=== PATIENT | female | born 1950 | race Caucasian/White ===

== ENCOUNTER → 2016-04-20 | Outpatient (CLI) | payer BC ==
[~2016-04-20] MED LIST: ACET500T57 PO; ADVIN25/60 INH; AMLH/550 PO; ASCO10003 PO; ASPI81TA28 PO; BSP15 PO; CHOL20009 PO; FEXO5TAB2 PO; FLNIN/ NAE; GLC5 PO; LPT10 PO; LSN20 PO; MAGN400T6 PO; METF-384 PO; MULT-506 PO; OMEP20CA9 PO; POTA20TA16 PO; RANI150T3 PO; SENNTAB23 PO; SITA100T3 PO; TPRSR/50 PO
[2016-04-20 09:47] LABS: BASO % 0.6 %; BASO ABS # 0.04 K/uL (0-0.2); COMPLETE YES; EOS % 1.9 %; HEMATOCRIT 35.9 % (37-47); IG% 0.3 %; LYMPH % 40.9 %; LYMPH ABS # 2.65 K/uL (1.2-3.4); MEAN CORPUSCULAR HEMOGLOBIN 28.3 pg (25-34); MEAN CORPUSCULAR HGB CONC 31.5 g/dl (32-36); MEAN PLATELET VOLUME 10.3 fL (7.4-10.4); MONO % 5.9 %; NEUT % 50.4 %; PLATELET COUNT 262 K/uL (130-400); RED BLOOD COUNT 3.99 M/uL (4.2-5.4); WHITE BLOOD COUNT 6.48 K/uL (4.8-10.8)
[2016-04-20 10:22] LABS: ALT/SGPT 29 U/L (12-78); AST/SGOT 15 U/L (15-37); BLOOD UREA NITROGEN 20 mg/dl (7-18); BUN/CREATININE RATIO 18.4 (10-20); CALCIUM 8.7 mg/dl (8.5-10.1); CARBON DIOXIDE 25 mmol/L (21-32); CHLORIDE 102 mmol/L (98-107); GLUCOSE 235 mg/dl (70-99); POTASSIUM 4.5 mmol/L (3.5-5.1); SODIUM 139 mmol/L (136-145)
[2016-04-20 10:25] LABS: ALB/GLOB RATIO 1.1 (0.9-2); ALKALINE PHOSPHATASE 63 U/L (45-117); FERRITIN 54.6 ng/ml (8.0-388.0); TOTAL IRON BINDING CAPACITY 293 mcg/dl (250-450)
== END | disposition home or self-care (01) ==
LOC: C.LAB 08:20
PROVIDERS: ATTEND Family Medicine
DX: E11.9 Type 2 diabetes mellitus without complications (principal); I10 Essential (primary) hypertension; D64.9 Anemia, unspecified; E55.9 Vitamin D deficiency, unspecified

== ENCOUNTER → 2016-05-24 | Outpatient (CLI) | payer BC | END | disposition home or self-care (01) | LOC: C.PAPS 05-23 11:56 | PROVIDERS: ATTEND Internal Medicine Geriatric Medicine | DX: Z01.419 Encounter for gynecological examination (general) (routine) without abnormal findings (principal) ==

== ENCOUNTER → 2016-05-30 | Outpatient (CLI) | payer BC ==
--- NOTE | 2016-05-30 09:38 | DIAGNOSTIC IMAGING REPORT ---
EXAMINATION: PELVIC ULTRASOUND CLINICAL HISTORY: N93.9 Vaginal bleeding, [id number] BLEEDING COMPARISON STUDY: None FINDINGS: The uterus measured 9.9 cm. Several uterine fibroids. These measure from 2.0 to 4.4 cm maximum dimension. Several demonstrate central calcification.. The endometrial stripe measured not identified due to fibroid involvement. The right ovary measured not well seen presumably secondary atrophic change. The left ovary measured not well seen presumably secondary atrophic change. There is no ultrasonographic evidence of ovarian torsion. It should be noted that ovarian torsion can be present with normal Doppler ultrasonographic findings. There was no evidence of pathologic free pelvic fluid. IMPRESSION: 1. Fibroid-type uterus 2. Fibroids measure from 2 to 4.4 cm maximum dimension. 3. Nonvisualization of the ovaries most likely secondary to atrophic change Electronically signed by: Arturo Whitney M.D. 05/30/2016 9:36 AM Dictated Date/Time: 05/30/2016 9:35 AM
--- NOTE | 2016-05-31 08:20 | DIAGNOSTIC IMAGING REPORT ---
EXAMINATION: PELVIC ULTRASOUND CLINICAL HISTORY: N93.9 Vaginal bleeding, [id number] BLEEDING COMPARISON STUDY: None FINDINGS: The uterus measured 9.9 cm. Several uterine fibroids. These measure from 2.0 to 4.4 cm maximum dimension. Several demonstrate central calcification.. The endometrial stripe measured not identified due to fibroid involvement. The right ovary measured not well seen presumably secondary atrophic change. The left ovary measured not well seen presumably secondary atrophic change. There is no ultrasonographic evidence of ovarian torsion. It should be noted that ovarian torsion can be present with normal Doppler ultrasonographic findings. There was no evidence of pathologic free pelvic fluid. IMPRESSION: 1. Fibroid-type uterus 2. Fibroids measure from 2 to 4.4 cm maximum dimension. 3. Nonvisualization of the ovaries most likely secondary to atrophic change Electronically signed by: Arturo Whitney M.D. 05/30/2016 9:36 AM Dictated Date/Time: 05/30/2016 9:35 AM
== END | disposition home or self-care (01) ==
LOC: C.ULTR 08:32
PROVIDERS: ATTEND Internal Medicine Geriatric Medicine
DX: N93.9 Abnormal uterine and vaginal bleeding, unspecified (principal)

== ENCOUNTER → 2016-07-15 | Outpatient (CLI) | payer BC ==
[2016-07-15 09:49] LABS: BASO % 0.6 %; BASO ABS # 0.04 K/uL (0-0.2); COMPLETE YES; EOS % 2.5 %; HEMATOCRIT 35.2 % (37-47); IG% 0.3 %; LYMPH % 44.1 %; MEAN CELL VOLUME 91.2 fL (80-100); MEAN CORPUSCULAR HGB CONC 31.8 g/dl (32-36); MEAN PLATELET VOLUME 10.2 fL (7.4-10.4); MONO % 6.9 %; NEUT % 45.6 %; PLATELET COUNT 249 K/uL (130-400); RED BLOOD COUNT 3.86 M/uL (4.2-5.4); WHITE BLOOD COUNT 7.25 K/uL (4.8-10.8)
[2016-07-15 10:16] LABS: ESTIMATED AVERAGE GLUCOSE 160 mg/dl; HA1C FLAG Normal (Normal)
[2016-07-15 10:37] LABS: BLOOD UREA NITROGEN 25 mg/dl (7-18); BUN/CREATININE RATIO 27.3 (10-20); CARBON DIOXIDE 26 mmol/L (21-32); CHLORIDE 106 mmol/L (98-107); CREATININE 0.92 mg/dl (0.60-1.20); GLUCOSE 158 mg/dl (70-99); MAGNESIUM 1.9 mg/dl (1.8-2.4); POTASSIUM 5.1 mmol/L (3.5-5.1); SODIUM 141 mmol/L (136-145)
[2016-07-15 10:47] LABS: FERRITIN 52.6 ng/ml (8.0-388.0); TOTAL IRON BINDING CAPACITY 309 mcg/dl (250-450)
== END | disposition home or self-care (01) ==
LOC: C.LAB 07:54
PROVIDERS: ATTEND Family Medicine
DX: D64.9 Anemia, unspecified (principal); E83.42 Hypomagnesemia; E11.9 Type 2 diabetes mellitus without complications; I10 Essential (primary) hypertension; Z11.59 Encounter for screening for other viral diseases

== ENCOUNTER → 2017-02-04 | Outpatient (CLI) | payer BC ==
[2017-02-04 08:34] LABS: ESTIMATED AVERAGE GLUCOSE 177 mg/dl; HA1C FLAG Normal (Normal)
[2017-02-04 08:46] LABS: CHOLESTEROL/HDL RATIO 1.8; MAGNESIUM 1.9 mg/dl (1.8-2.4)
== END | disposition home or self-care (01) ==
LOC: C.LAB 07:38
PROVIDERS: ATTEND Physician Assistant Medical
DX: E55.9 Vitamin D deficiency, unspecified (principal); E11.9 Type 2 diabetes mellitus without complications; R25.2 Cramp and spasm

== ENCOUNTER → 2017-03-08 | Outpatient (CLI) | payer BC ==
[~2017-03-08] MED LIST changes: -ACET500T57 PO; +ACET500T58 PO
--- NOTE | 2017-03-09 14:26 | MAMMOGRAPHY REPORT ---
BILATERAL DIGITAL SCREENING MAMMOGRAM TOMOSYNTHESIS WITH CAD: 03/08/2017 CLINICAL HISTORY: Routine screening. Patient has no complaints. TECHNIQUE: Breast tomosynthesis in addition to standard 2D mammography was performed. Current study was also evaluated with a Computer Aided Detection (CAD) system. COMPARISON: Comparison is made to exams dated: 01/11/2016 mammogram, 01/07/2015 mammogram, 12/06/2013 mammogram, 11/14/2012 mammogram, 11/14/2011 mammogram, and 11/11/2010 mammogram - [facility]. BREAST COMPOSITION: There are scattered areas of fibroglandular density in both breasts. FINDINGS: No suspicious masses, calcifications, or areas of architectural distortion are noted in ei ther breast. There has been no significant interval change compared to prior exams. Scattered bilater al benign-appearing calcifications are not significantly changed. Asymmetry in the right superior br east is stable compared to multiple prior exams including the 2011 exam, and considered benign given long-term stability. IMPRESSION: ACR BI-RADS CATEGORY 2: BENIGN There is no mammographic evidence of malignancy. A 1 year screening mammogram is recommended. The pa tient will receive written notification of the results. Approximately 10% of breast cancers are not detected with mammography. A negative mammographic report should not delay biopsy if a clinically suggestive mass is present. Jenn Valerio M.D. /:03/09/2017 07:48:14 Box Toe Maker: Marizol Daniels, [facility] letter sent: Normal 1/2 BI-RADS Code: ACR BI-RADS Category 2: Benign
== END | disposition home or self-care (01) ==
LOC: C.MAMM 17:11
PROVIDERS: ATTEND Physician Assistant Medical
DX: Z12.31 Encounter for screening mammogram for malignant neoplasm of breast (principal)

== ENCOUNTER → 2017-08-10 | Outpatient (CLI) | payer BC ==
[~2017-08-10] MED LIST changes: +POTA-639 PO; -POTA20TA16 PO
--- NOTE | 2017-08-10 09:23 | DIAGNOSTIC IMAGING REPORT ---
CHEST 2 VIEWS ROUTINE CLINICAL HISTORY: ASTHMA COMPARISON STUDY: No previous studies for comparison. FINDINGS: The heart is the upper limits of normal in size. There is mild nonspecific mediastinal prominence. There is no focal pulmonary consolidation. There is no failure. There are no pleural effusions.[ IMPRESSION: 1. Mild mediastinal fullness. While this may be secondary to fat deposition given the patient's body habitus, mild adenopathy cannot be excluded 2. No evidence of failure. No evidence of focal pulmonary consolidation Electronically signed by: Nathanael De Leon M.D. 08/10/2017 9:22 AM Dictated Date/Time: 08/10/2017 9:19 AM
== END | disposition home or self-care (01) ==
LOC: C.RAD 08:45
PROVIDERS: ATTEND Physician Assistant Medical
DX: J45.909 Unspecified asthma, uncomplicated (principal)

== ENCOUNTER → 2017-08-12 | Outpatient (CLI) | payer BC ==
[2017-08-12 09:57] LABS: BASO % 0.6 %; BASO ABS # 0.04 K/uL (0-0.2); EOS % 3.1 %; HEMOGLOBIN 11.2 g/dL (12.0-16.0); IG# 0.02 K/uL (0.00-0.02); LYMPH % 43.5 %; LYMPH ABS # 2.79 K/uL (1.2-3.4); MEAN CELL VOLUME 89.7 fL (80-100); MEAN CORPUSCULAR HEMOGLOBIN 28.7 pg (25-34); MEAN PLATELET VOLUME 9.9 fL (7.4-10.4); MONO % 7.8 %; NEUT % 44.7 %; NEUT ABS # 2.87 K/uL (1.4-6.5); PLATELET COUNT 249 K/uL (130-400); RED CELL DISTRIBUTION WIDTH CV 13.7 % (11.5-14.5); RED CELL DISTRIBUTION WIDTH SD 44.7 fL (36.4-46.3); WHITE BLOOD COUNT 6.42 K/uL (4.8-10.8)
[2017-08-12 10:16] LABS: HEMOGLOBIN A1C 8.3 % (4.5-5.6)
[2017-08-12 10:27] LABS: ALBUMIN 3.5 gm/dl (3.4-5.0); ALT/SGPT 37 U/L (12-78); AST/SGOT 29 U/L (15-37); BLOOD UREA NITROGEN 22 mg/dl (7-18); CALCIUM 8.8 mg/dl (8.5-10.1); CARBON DIOXIDE 28 mmol/L (21-32); CREATININE 1.01 mg/dl (0.60-1.20); GLUCOSE 158 mg/dl (70-99); POTASSIUM 5.1 mmol/L (3.5-5.1); SODIUM 138 mmol/L (136-145)
[2017-08-12 10:43] LABS: ALKALINE PHOSPHATASE 73 U/L (45-117); TOTAL PROTEIN 6.9 gm/dl (6.4-8.2)
== END | disposition home or self-care (01) ==
LOC: C.LAB 08:37
PROVIDERS: ATTEND Physician Assistant Medical
DX: E11.9 Type 2 diabetes mellitus without complications (principal); D64.9 Anemia, unspecified

== ENCOUNTER → 2017-10-23 | Outpatient (CLI) | payer BC ==
[~2017-10-23] MED LIST changes: +LIRA18IN SC; +LISI-726 PO; -LSN20 PO; +OMEG10002 PO; +OXYC-90 PO; -POTA-639 PO; +POTA10CA28 PO; -SITA100T3 PO
[2017-10-23 10:18] LABS: BLOOD UREA NITROGEN 32 mg/dl (7-18); CARBON DIOXIDE 24 mmol/L (21-32); CREATININE 1.16 mg/dl (0.60-1.20); GLUCOSE 279 mg/dl (70-99); POTASSIUM 4.7 mmol/L (3.5-5.1); SODIUM 137 mmol/L (136-145)
[2017-10-23 10:32] LABS: HEMOGLOBIN A1C 8.5 % (4.5-5.6)
== END | disposition home or self-care (01) ==
LOC: C.LAB 08:54
PROVIDERS: ATTEND Physician Assistant
DX: E11.65 Type 2 diabetes mellitus with hyperglycemia (principal); I10 Essential (primary) hypertension; R60.9 Edema, unspecified

== ENCOUNTER → 2017-11-02 | Outpatient (CLI) | payer BC ==
[2017-11-02 19:34] LABS: BLOOD UREA NITROGEN 20 mg/dl (7-18); CALCIUM 8.6 mg/dl (8.5-10.1); CARBON DIOXIDE 24 mmol/L (21-32); CREATININE 0.99 mg/dl (0.60-1.20); GLUCOSE 130 mg/dl (70-99); POTASSIUM 5.1 mmol/L (3.5-5.1); SODIUM 136 mmol/L (136-145)
== END | disposition home or self-care (01) ==
LOC: C.LAB 17:41
PROVIDERS: ATTEND Nurse Practitioner Adult Health
DX: R60.9 Edema, unspecified (principal)

== ENCOUNTER 2022-08-23 10:22 | Inpatient (IN) ==
--- NOTE | 2022-08-02 10:00 | PAT Medication Instructions ---
Medication Instructions Date of Service August 02, 2022 Home Medications Medication Instructions Recorded compr.stocking,thigh,short,lrg #2 ea 09/04/19 OneTouch Delica Plus Lancet 33 #400 ea 09/23/19 gauge (lancets) amiloride 5 mg-hydrochlorothiazide See Rx Instructions .Route 08/05/21 50 mg tablet .COMPLEX #90 tabs fluticasone 250 mcg-salmeterol 50 1 inh inhalation BID #180 ea 10/18/21 mcg/dose blistr powdr for inhalation (Advair Diskus) metformin 500 mg 24 hr 1,000 mg PO BID #360 tabs 02/24/22 tablet,extended release OneTouch Verio test strips (blood #400 ea 04/21/22 sugar diagnostic) baclofen 10 mg tablet 10 mg PO BID #180 tabs 05/24/22 gabapentin 800 mg tablet 800 mg PO TID #270 tabs 07/14/22 metoprolol succinate 50 mg See Rx Instructions .Route 08/02/22 tablet,extended release 24 hr .COMPLEX #90 tabs ascorbic acid (vitamin C) 1,000 mg tablet (Vitamin C) 1 tab PO TID aspirin 81 mg tablet,delayed release 81 mg PO QAM cholecalciferol (vitamin D3) 25 mcg (1,000 unit) capsule (Vitamin D3) 4,000 unit PO HS ferrous sulfate 325 mg (65 mg iron) tablet (Iron (ferrous sulfate)) 325 mg PO QAM fluticasone propionate 50 mcg/actuation nasal spray,suspension (Flonase Allergy Relief) 1 spray intranasal QAM multivitamin 1 tab PO QAM omega 1-qby-pap-fish oil 1,000 mg (120 mg-180 mg) capsule (Fish Oil) 3 cap PO TID acetaminophen 500 mg tablet 1,000 mg PO TID PRN pain amiloride 5 mg-hydrochlorothiazide 50 mg tablet See Rx Instructions .Route .COMPLEX fluticasone 250 mcg-salmeterol 50 mcg/dose blistr powdr for inhalation (Advair Diskus) 1 inh inhalation BID metformin 500 mg 24 hr tablet,extended release 1,000 mg PO BID insulin degludec 100 unit/mL (3 mL) subcutaneous pen (Tresiba FlexTouch U-100 insulin) See Rx Instructions subcut HS baclofen 10 mg tablet 10 mg PO BID fexofenadine 180 mg tablet (Luda Allergy) 180 mg PO BID gabapentin 800 mg tablet 800 mg PO TID atorvastatin 10 mg tablet 10 mg PO HS buspirone 15 mg tablet 15 mg PO BID cyanocobalamin (vitamin B-12) 1,000 mcg tablet (Vitamin B-12) 1,000 mcg PO QPM duloxetine 60 mg capsule,delayed release 60 mg PO HS lisinopril 40 mg tablet 40 mg PO HS magnesium 250 mg tablet 250 mg PO HS magnesium 250 mg tablet 250 mg PO QPM omeprazole 20 mg capsule,delayed release 20 mg PO QPM semaglutide 0.25 mg or 0.5 mg (2 mg/3 mL) subcutaneous pen injector (Ozempic) 0.5 mg subcut WK metoprolol succinate 50 mg tablet,extended release 24 hr See Rx Instructions .Route .COMPLEX Continue as directed semaglutide 0.25 mg or 0.5 mg (2 mg/3 mL) subcutaneous pen injector (Ozempic) 0.5 mg subcut WK ASK your prescriber and surgeon aspirin 81 mg tablet,delayed release 81 mg PO QAM STOP taking 2 weeks before surgery (or as soon as possible if surgery is within 2 weeks) omega 2-ytd-ucv-fish oil 1,000 mg (120 mg-180 mg) capsule (Fish Oil) 3 cap PO TID DO NOT take the morning of surgery ascorbic acid (vitamin C) 1,000 mg tablet (Vitamin C) 1 tab PO TID ferrous sulfate 325 mg (65 mg iron) tablet (Iron (ferrous sulfate)) 325 mg PO QAM multivitamin 1 tab PO QAM amiloride 5 mg-hydrochlorothiazide 50 mg tablet See Rx Instructions .Route .COMPLEX metformin 500 mg 24 hr tablet,extended release 1,000 mg PO BID baclofen 10 mg tablet 10 mg PO BID Take morning of surgery With a small sip of water, OTHERWISE NOTHING TO EAT OR DRINK AFTER MIDNIGHT: fluticasone propionate 50 mcg/actuation nasal spray,suspension (Flonase Allergy Relief) 1 spray intranasal QAM acetaminophen 500 mg tablet 1,000 mg PO TID PRN pain (if needed) fluticasone 250 mcg-salmeterol 50 mcg/dose blistr powdr for inhalation (Advair Diskus) 1 inh inhalation BID gabapentin 800 mg tablet 800 mg PO TID buspirone 15 mg tablet 15 mg PO BID Take evening before surgery ascorbic acid (vitamin C) 1,000 mg tablet (Vitamin C) 1 tab PO TID cholecalciferol (vitamin D3) 25 mcg (1,000 unit) capsule (Vitamin D3) 4,000 unit PO HS acetaminophen 500 mg tablet 1,000 mg PO TID PRN pain (if needed) fluticasone 250 mcg-salmeterol 50 mcg/dose blistr powdr for inhalation (Advair Diskus) 1 inh inhalation BID metformin 500 mg 24 hr tablet,extended release 1,000 mg PO BID insulin degludec 100 unit/mL (3 mL) subcutaneous pen (Tresiba FlexTouch U-100 insulin) See Rx Instructions subcut HS baclofen 10 mg tablet 10 mg PO BID fexofenadine 180 mg tablet (Luda Allergy) 180 mg PO BID gabapentin 800 mg tablet 800 mg PO TID atorvastatin 10 mg tablet 10 mg PO HS buspirone 15 mg tablet 15 mg PO BID cyanocobalamin (vitamin B-12) 1,000 mcg tablet (Vitamin B-12) 1,000 mcg PO QPM duloxetine 60 mg capsule,delayed release 60 mg PO HS lisinopril 40 mg tablet 40 mg PO HS magnesium 250 mg tablet 250 mg PO HS magnesium 250 mg tablet 250 mg PO QPM omeprazole 20 mg capsule,delayed release 20 mg PO QPM metoprolol succinate 50 mg tablet,extended release 24 hr See Rx Instructions .Route .COMPLEX Other Notes If you have any questions please call us at [phone] or [phone] or [phone] or [phone]
--- NOTE | 2022-08-09 11:34 | Anesthesiology Consultation ---
Date of Service August 09, 2022 Assessment & Plan (1) Encounter for pre-operative examination: - check BSG am DOS. - PCP 08/10/22 [place]: "...scheduled for back surgery August 23, 2022. Preop testing shows UTI. Ordered Macrobid 100 mg twice a day...patient cleared for surgery..." Chart Review Chart Review: Acceptable Risk for Surgery and Patient seen in Pre Admission Testing Teaching & Discussion Pre-Anesthesia Teaching/Discussion Notes: Instructed NPO after midnight before surgery, except medications with 15 cc of water. Medication instructions provided according to the PAT guidelines. History Surgery Operation Date: 08/23/22 10:00 Proposed Procedures p L3-S1 Decompression and Fusion, Spinal Cord Monitoring - Wan Baker DO Height/Weight Height: 5 ft 5 in Weight: 132.449 kg Allergies Allergy/AdvReac Type Severity Reaction Status Date / Time empagliflozin Allergy Intermediate CAUSED Verified 08/10/22 11:17 [From Jardiance] KIDNEY DISEASE SHORT TERM nickel Allergy Intermediate localized Verified 08/10/22 11:17 rash Penicillins Allergy Intermediate RASH Verified 08/10/22 11:17 Medications Home Medications Medication Instructions Recorded Confirmed Last Taken ascorbic acid (vitamin C) 1,000 mg 1 tab PO TID 06/12/18 08/10/22 06/27/18 21:00 tablet (Vitamin C) aspirin 81 mg tablet,delayed 81 mg PO QAM 06/12/18 08/10/22 06/27/18 09:00 release cholecalciferol (vitamin D3) 25 4,000 unit PO HS 06/12/18 08/10/22 10/06/19 18:00 mcg (1,000 unit) capsule (Vitamin D3) ferrous sulfate 325 mg (65 mg 325 mg PO QAM 06/12/18 08/10/22 10/06/19 08:00 iron) tablet (Iron (ferrous sulfate)) fluticasone propionate 50 1 spray intranasal QAM 06/12/18 08/10/22 10/07/19 06:00 mcg/actuation nasal spray,suspension (Flonase Allergy Relief) multivitamin 1 tab PO QAM 06/12/18 08/10/22 10/06/19 06:00 compr.stocking,thigh,short,lrg #2 ea 09/04/19 08/10/22 Unknown OneTouch Delica Plus Lancet 33 #400 ea 09/23/19 08/10/22 Unknown gauge (lancets) acetaminophen 500 mg tablet 1,000 mg PO TID PRN pain 10/19/20 08/10/22 Unknown fluticasone 250 mcg-salmeterol 50 1 inh inhalation BID #180 ea 10/18/21 08/10/22 Unknown mcg/dose blistr powdr for inhalation (Advair Diskus) metformin 500 mg 24 hr 1,000 mg PO BID #360 tabs 02/24/22 08/10/22 Unknown tablet,extended release OneTouch Verio test strips (blood #400 ea 04/21/22 08/10/22 Unknown sugar diagnostic) insulin degludec 100 unit/mL (3 See Rx Instructions subcut HS 05/09/22 08/10/22 Unknown mL) subcutaneous pen (Tresiba FlexTouch U-100 insulin) baclofen 10 mg tablet 10 mg PO BID #180 tabs 05/24/22 08/10/22 Unknown fexofenadine 180 mg tablet 180 mg PO BID 06/22/22 08/10/22 Unknown (Luda Allergy) gabapentin 800 mg tablet 800 mg PO TID #270 tabs 07/14/22 08/10/22 Unknown atorvastatin 10 mg tablet 10 mg PO HS 08/01/22 08/10/22 Unknown buspirone 15 mg tablet 15 mg PO BID 08/01/22 08/10/22 Unknown cyanocobalamin (vitamin B-12) 1,000 mcg PO QPM 08/01/22 08/10/22 Unknown 1,000 mcg tablet (Vitamin B-12) duloxetine 60 mg capsule,delayed 60 mg PO HS 08/01/22 08/10/22 Unknown release lisinopril 40 mg tablet 40 mg PO HS 08/01/22 08/10/22 Unknown magnesium 250 mg tablet 250 mg PO HS 08/01/22 08/10/22 Unknown omeprazole 20 mg capsule,delayed 20 mg PO QPM 08/01/22 08/10/22 Unknown release semaglutide 0.25 mg or 0.5 mg (2 0.5 mg subcut WK 08/01/22 08/10/22 Unknown mg/3 mL) subcutaneous pen injector (Ozempic) amiloride 5 mg-hydrochlorothiazide See Rx Instructions .Route 08/02/22 08/10/22 Unknown 50 mg tablet .COMPLEX #90 tabs metoprolol succinate 50 mg See Rx Instructions .Route 08/02/22 08/10/22 Unknown tablet,extended release 24 hr .COMPLEX #90 tabs nitrofurantoin 100 mg PO BID #14 caps 08/10/22 08/10/22 Unknown monohydrate/macrocrystals 100 mg capsule (Macrobid) Past Medical History Medical History Acid reflux disease Adrenal nodule Asthma Walton's palsy Cardiac murmur Chronic back pain CKD (chronic kidney disease) Depression with anxiety Diabetes mellitus, type 2 History of colon polyps Hyperlipidemia Hypertension Kidney stones Peripheral neuropathy Patient denies h/o stroke, seizures, heart attack, heart failure, blood clots or blood transfusions. Exercise / Class Metabolic Activity III < 4 Walking/Shop/Light housework (denies chest discomfort or shortness of breath with usual activities) Past Family History Family History Grandmother (Maternal) Diabetes Grandmother (Paternal) Diabetes Father Diabetes Brother Pacemaker Other No family history of adverse response to anesthesia Denies family history of Ovarian cancer Breast cancer Colorectal cancer Past Surgical History Surgical History History of breast biopsy History of carpal tunnel surgery of right wrist History of cholecystectomy History of colonoscopy History of cryosurgery History of hysteroscopy History of lithotripsy History of surgical removal of pilonidal cyst History of tooth extraction S/P epidural steroid injection Past Anesthesia History No Hx of Anesthesia Complications and No Family Hx of Anesthesia Complications History of PONV No Hx of PONV and No Hx of Motion Sickness Social History Smoking Status: Former smoker tobacco type: cigarettes Do You Dip or Chew Tobacco: No Smoking End Date: 1992 Hx Alcohol Use: No Hx Substance Use: No substance use type: does not use Review of Systems Snoring, denies witnessed apneas. Patient denies chest pain, shortness of breath, dyspnea on exertion, reflux, fever, chills, cough, wheezing, or palpitations. Physical Exam Vital Signs Vitals BP 138/84 P 63 TEMP 97.8 SP02 94% on RA RESP 17 Physical Full cervical extension range of motion without pain TMD < 3 finger breadths Mallampati Score 3 Dentition: full upper denture, denies chipped or loose teeth, caps/crowns, implants or bridges Lungs: normal respiratory effort. Good air movement, clear throughout to auscultation, no adventitious breath sounds Cardiac: regular rate and rhythm, no murmurs noted Carotid arteries: negative bruit bilat Lab Results Anesthesia Preop Results Results Anesthesia Widget: WBC 5.58 K/ul (4.8-10.8) 08/09/22 Hgb 10.4 g/dl (12.0-16.0) L 08/09/22 Hct 33.2 % (37.0-47.0) L 08/09/22 Plt 239 K/uL (130-400) 08/09/22 Na 137 mmol/L (136-145) 08/09/22 K 5.0 mmol/L (3.5-5.1) 08/09/22 Cl 103 mmol/L (98-107) 08/09/22 CO2 28 mmol/L (21-32) 08/09/22 BUN 14 mg/dl (6-23) 08/09/22 Creat 0.88 mg/dl (0.6-1.2) 08/09/22 Glucose Level 85 mg/dl (70-99(Fasting)) 08/09/22 PT 9.8 Seconds (9.0-12.0) 08/09/22 PTT 28.5 Seconds (21.0-31.0) 08/09/22 INR 0.9 (0.9-1.1) 08/09/22 TSH 1.223 uIu/ml (0.300-4.500) 06/20/22 HA1c 6.6 % (4.5-5.6) H 08/09/22 Urine Color Yellow 08/09/22 Urine Appearance Clear (Clear) 08/09/22 Urine pH 5.5 (4.5-7.5) 08/09/22 Urine Specific [place] 1.020 (1.000-1.030) 08/09/22 Urine Protein Negative (Negative) 08/09/22 Urine Glucose (UA) Negative (Negative) 08/09/22 Urine Ketones Negative (Negative) 08/09/22 Urine Blood Negative (Negative) 08/09/22 Urine Nitrite Positive (Negative) A 08/09/22 Urine Bilirubin Negative (Negative) 08/09/22 Urine Urobilinogen Negative (Negative) 08/09/22 Urine Leukocyte Esterase Trace (Negative) H 08/09/22 Urine WBC (Auto) 1-5 /hpf (0-5) 08/09/22 Urine RBC (Auto) 0-4 /hpf (0-4) 08/09/22 Urine Hyaline Casts (Auto) 1-5 /lpf (0-5) 08/09/22 Urine Epithelial Cells (Auto) 10-20 /lpf (0-5) H 08/09/22 Urine Bacteria (Auto) 4+ (Negative) H 08/09/22 Blood Type O Positive 08/09/22 Antibody Screen NEGATIVE 08/09/22 Testing Laboratory Results Surgeon's office made aware of abnormal UA. Electrocardiogram Date: 08/09/22 NSR, rate 65 bpm Chest X-Ray Date: 08/09/22 No active disease in the chest Echocardiogram Date: 01/17/17 EF 55-60% Mild cLVH Normal LV wall motion No significant valvular pathology Grade I diastolic dysfunction COVID-19 Risk Screen Screening Information COVID-19 Screen Date: 08/09/22 Exposure 21 Days Family/Household +COVID Last 21 Days: No Exposure 10 Days Any COVID Exposure Last 10 Days: No Symptoms Last 10 Days Experienced COVID Sx Last 10 Days: No + COVID 0-90 Days COVID + in Last 0-90 Days: No
[~2022-08-23 10:22] MED LIST changes: -ACET500T58 PO; +ACETAMINOPHEN 500 MG TAB PO SCH; -ADVIN25/60 INH; -AMLH/550 PO; -ASCO10003 PO; -ASPI81TA28 PO; -BSP15 PO; -CHOL20009 PO; +CLINDAMYCIN/D5W 900 MG/50 ML BAG IV SCH; +CeleBREX 200 MG CAP PO SCH; -FEXO5TAB2 PO; -FLNIN/ NAE; +GABAPENTIN 300 MG CAP PO SCH; -GLC5 PO; -LIRA18IN SC; -LISI-726 PO; -LPT10 PO; +LR 15ML/HR IV SCH; -MAGN400T6 PO; -METF-384 PO; -MULT-506 PO; -OMEG10002 PO; -OMEP20CA9 PO; -OXYC-90 PO; -POTA10CA28 PO; -RANI150T3 PO; -SENNTAB23 PO; -TPRSR/50 PO
[2022-08-23] MEDS ORDERED: MIDAZOLAM HCL 1 MG/ML 2ML VIAL ONE (10:52)
[2022-08-23] MEDS ORDERED: fentaNYL citrate PF 100 MCG/2 ML VIAL ONE ×2 (10:52→12:13)
--- NOTE | 2022-08-23 11:14 | History & Physical Bridge Note ---
Date of Service August 23, 2022 History & Physical Bridge Note I have examined the patient, reviewed the History & Physical and in the interval since the performance of the History & Physical I have noted the following changes of clinical significance: no changes noted
--- NOTE | 2022-08-23 11:15 | History & Physical Report ---
Date of Service August 23, 2022 Assessment & Plan (1) Lumbar spinal stenosis: Plan: L3-S1 decompression and fusion History of Present Illness Chief Complaint: Back and bilateral leg pain Primary Care Provider: Andrew Adan DO This is a 71-year-old female presents with chronic persistent back and leg pain after failing course of nonoperative care she is here for surgical intervention. Allergies Allergy/AdvReac Type Severity Reaction Status Date / Time empagliflozin Allergy Intermediate CAUSED Verified 08/10/22 11:17 [From Jardiance] KIDNEY DISEASE SHORT TERM nickel Allergy Intermediate localized Verified 08/10/22 11:17 rash Penicillins Allergy Intermediate RASH Verified 08/10/22 11:17 Home Medications Medication Instructions Recorded Confirmed Type ascorbic acid (vitamin C) 1,000 mg 1 tab PO TID 06/12/18 08/23/22 History tablet (Vitamin C) aspirin 81 mg tablet,delayed 81 mg PO QAM 06/12/18 08/23/22 History release cholecalciferol (vitamin D3) 25 4,000 unit PO HS 06/12/18 08/23/22 History mcg (1,000 unit) capsule (Vitamin D3) ferrous sulfate 325 mg (65 mg 325 mg PO QAM 06/12/18 08/23/22 History iron) tablet (Iron (ferrous sulfate)) fluticasone propionate 50 1 spray intranasal QAM 06/12/18 08/23/22 History mcg/actuation nasal spray,suspension (Flonase Allergy Relief) multivitamin 1 tab PO QAM 06/12/18 08/23/22 History compr.stocking,thigh,short,lrg #2 ea 09/04/19 08/10/22 Rx OneTouch Delica Plus Lancet 33 #400 ea 09/23/19 08/10/22 Rx gauge (lancets) acetaminophen 500 mg tablet 1,000 mg PO TID PRN pain 10/19/20 08/23/22 History fluticasone 250 mcg-salmeterol 50 1 inh inhalation BID #180 ea 10/18/21 08/23/22 Rx mcg/dose blistr powdr for inhalation (Advair Diskus) metformin 500 mg 24 hr 1,000 mg PO BID #360 tabs 02/24/22 08/23/22 Rx tablet,extended release OneTouch Verio test strips (blood #400 ea 04/21/22 08/10/22 Rx sugar diagnostic) insulin degludec 100 unit/mL (3 See Rx Instructions subcut HS 05/09/22 08/23/22 History mL) subcutaneous pen (Tresiba FlexTouch U-100 insulin) baclofen 10 mg tablet 10 mg PO BID #180 tabs 05/24/22 08/23/22 Rx fexofenadine 180 mg tablet 180 mg PO BID 06/22/22 08/23/22 History (Luda Allergy) gabapentin 800 mg tablet 800 mg PO TID #270 tabs 07/14/22 08/23/22 Rx atorvastatin 10 mg tablet 10 mg PO HS 08/01/22 08/23/22 History buspirone 15 mg tablet 15 mg PO BID 08/01/22 08/23/22 History cyanocobalamin (vitamin B-12) 1,000 mcg PO QPM 08/01/22 08/23/22 History 1,000 mcg tablet (Vitamin B-12) duloxetine 60 mg capsule,delayed 60 mg PO HS 08/01/22 08/23/22 History release lisinopril 40 mg tablet 40 mg PO HS 08/01/22 08/23/22 History magnesium 250 mg tablet 250 mg PO HS 08/01/22 08/23/22 History omeprazole 20 mg capsule,delayed 20 mg PO QPM 08/01/22 08/23/22 History release semaglutide 0.25 mg or 0.5 mg (2 0.5 mg subcut WK 08/01/22 08/23/22 History mg/3 mL) subcutaneous pen injector (Ozempic) amiloride 5 mg-hydrochlorothiazide See Rx Instructions .Route 08/02/22 08/10/22 Rx 50 mg tablet .COMPLEX #90 tabs metoprolol succinate 50 mg See Rx Instructions .Route 08/02/22 08/10/22 Rx tablet,extended release 24 hr .COMPLEX #90 tabs Past Med/Surg History Medical History Acid reflux disease Adrenal nodule Asthma Walton's palsy Cardiac murmur Chronic back pain CKD (chronic kidney disease) Depression with anxiety Diabetes mellitus, type 2 History of colon polyps Hyperlipidemia Hypertension Kidney stones Peripheral neuropathy Surgical History History of breast biopsy History of carpal tunnel surgery of right wrist History of cholecystectomy History of colonoscopy History of cryosurgery History of hysteroscopy History of lithotripsy History of surgical removal of pilonidal cyst History of tooth extraction S/P epidural steroid injection Family History Grandmother (Maternal) Diabetes Grandmother (Paternal) Diabetes Father Diabetes Brother Pacemaker Other No family history of adverse response to anesthesia Denies family history of Ovarian cancer Breast cancer Colorectal cancer Social History Smoking Status: Former smoker Tobacco Type: Cigarettes Age Started Using Tobacco: 19; Age Quit Using Tobacco: 37; packs per day: 1.5; Smoking End Date: 1992; Second Hand Exposure: No; Do You Dip or Chew Tobacco: No; Tobacco Cessation Education Requested by Patient: No Hx Alcohol Use: No Hx Substance Use: No Preferred Language: [place] Communication Ability: Effective Visual Impairment: Limited Hearing Ability: Normal 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 Beliefs That Will Affect Care: None marital status: Current Living Situation: Spouse current occupational status: retired Other Information That Helps Us Care for You: No Feels Safe at Home: Yes Safety Concerns: Feels Safe At This Time Childhood Exposure to Second-Hand Smoke: No Diet: low carbohydrate caffeine: Yes Dental Care, Regularly: Yes Physical Activity Frequency: Does not Exercise Seatbelt Use: always Sunscreen Use: Yes Do you think of yourself as: straight/heterosexual Assistive Devices: Denture - Upper, Glasses and Walker Physical Exam Physical Exam: Patient is alert and oriented Heart regular rhythm Lungs clear Results & Data Results & Data Vital Signs (Past 12 Hours) Vital Signs Temp Pulse Resp BP Pulse Ox O2 Del Method 08/23/22 10:59 36.9 C 76 16 185/64 H 98 Room Air
[2022-08-23] MEDS ORDERED: PROMETHAZINE HCL 6.25 MG in SODIUM CHLORIDE 0.9% 50 ML IV PRN (11:25)
[2022-08-23] MEDS ORDERED: HYDROmorphone INJ 1 MG/ML SYRINGE IV PRN ×2 (11:25→16:11)
[2022-08-23] MEDS ORDERED: ONDANSETRON INJ 2 MG/ML 2 ML VIAL IV PRN ×2 (11:25→16:11)
[2022-08-23] MEDS ORDERED: ATROPINE SULFATE 0.1 MG/ML 10ML SYR IV PRN (11:25)
[2022-08-23] MEDS ORDERED: ePHEDrine sulfate 50 MG/ML AMP IV PRN (11:25)
[2022-08-23] MEDS ORDERED: ceFAZolin 330 MG/ML 1 GM VIAL ONE (11:29)
[2022-08-23] MEDS ORDERED: BUPIVACAINE/EPINEPHRINE 0.25% 1:200,000 30 ML VIAL ONE (11:29)
[2022-08-23] MEDS ORDERED: LIDOCAINE 2% 2 ML VIAL/AMP(20MG/ML) INFIL ONE (11:34)
[2022-08-23] MEDS ORDERED: ONDANSETRON INJ 2 MG/ML 2 ML VIAL ONE ×2 (11:34→12:20)
[2022-08-23] MEDS ORDERED: ROCURONIUM BROMIDE 10 MG/ML 5 ML VIAL IV ONE ×6 (11:34→13:17)
[2022-08-23] MEDS ORDERED: PROPOFOL IV EMULSION 10 MG/ML 20 ML VIAL IV ONE (11:34)
[2022-08-23] MEDS ORDERED: ePHEDrine sulfate 50 MG/ML SYR ONE (12:16)
[2022-08-23] MEDS ORDERED: SUGAMMADEX SODIUM 200 MG/2 ML VIAL IV ONE (12:20)
[2022-08-23] MEDS ORDERED: FLOSEAL HEMOSTATIC MATRIX 10ML TOP ONE (12:31)
[2022-08-23] MEDS ORDERED: GLYCOPYRROLATE 0.2 MG/ML VIAL ONE (12:49)
[2022-08-23] MEDS ORDERED: PHENYLEPHRINE HCL 10 MG/ML VIAL ONE (13:12)
--- NOTE | 2022-08-23 14:33 | Operative Report ---
Post Operative Report Pre & Post Diagnosis Operation Date: 08/23/22 11:50 Pre-Op Diagnosis: Lumbar spinal stenosis with neurogenic claudication Lumbar spondylolisthesis Morbid obesity Post-Op Diagnosis: Same I identified the patient and participated in the time-out.: Yes Procedure Operation Date: 08/23/22 11:50 Actual Procedures #1 lumbar decompression with bilateral medial facetectomies and foraminotomies L2-L3, L3-L4, L4-L5 and L5-S1. #2 posterior spinal fusion L3-S1. #3 placement posterior segmental instrumentation L3-S1. #4 interbody fusion L3-L4 L4-L5 L5- S1. #5 placement of Spira 9 x 26 mm cage at L3-L4, 12 x 26 mm cage at L4-L5 and 13 x 26 mm cage at L5-S1. #6 placement locally harvested morselized autograft in the posterior gutters. #7 placement of I factor combined with V toss in the interbody space and posterior lateral gutters. Surgeon Wan Baker, DO Combine Inspector Christina Diaz Estimated Blood Loss 650 Findings See Below The patient is 5 foot 5 weighing over 132 kg with a BMI in excess of 48. This combined with an EBL of greater than 650 cc. Significant technical difficulty adding these 50% increased operative time. Specimens None Indications This is a 71-year-old female who presents above-mentioned diagnosis after failed extensive course of nonoperative care she is here for surgical intervention. Description of Procedure Patient was met with identified informed consent obtained. Patient was then taken to the operative suite underwent patient placed in a prone position on the [place] table top Luis A frame. All bony promises well-padded eyes inspected to ensure no external pressure placed upon the. This point the lumbar spine was prepped and draped in a sterile fashion. Sharp dissection with the assistance of Bovie cautery to form down to and exposing the lamina and transverse processes of L3-L4-L5 and sacral ala bilaterally. From caudal to cephalad fashion complete laminectomy of L5 L4 L3 and partial laminectomy of L2 was performed including bilateral medial facetectomies and foraminotomies addressing severe spinal stenosis. Pedicle screws then placed in all 3 L4-L5 and S1 levels bilaterally with assistance of fluoroscopy and the properly sized michelle placed. By way of a transforaminal approach on the right complete discectomy of L5-S1 was performed endplates curetted to subcortical bleeding bone and a 13 x 26 mm Spira cage with I factor tapped in position. Then proceeded to L for L5 again by way of transforaminal approach and right complete discectomy performed endplates guided to subcortically bone and a 12 x 26 mm Spira cage with I factor tapped in position. Lastly proceeded to L3-L4 and again by way of a transforaminal approach on the right complete discectomy performed endplates curetted to subcortical bleeding bone and a 9 x 26 mm Spira cage with I factor tapped the position. The rods were then locked into final position bilaterally. The transverse processes of L3-L4-L5 and the sacral ala burred to subcortically bone. I factor amount of the test and locally harvested morselized graft was placed in the posterior gutters. 15 round ROSAMARIA drain inserted. The incision was then closed with 1 Vicryl the fascia 2-0 Vicryl subcutaneously and 4 Monocryl for final skin closure. Steri-Strips and a sterile dressing placed. Patient waken taken to PACU in stable condition. Please note spinal cord monitoring was utilized at the procedure no changes noted. Lastly Christina Diaz was present at the entire surgeon while the patient positioning complex portions of the surgery and final skin closure. I attest to the content of the Intraoperative Record and any orders documented therein. Any exceptions are noted below.
--- NOTE | 2022-08-23 14:49 | Fluoroscopy Report ---
INTRAOPERATIVE RADIOGRAPHS CLINICAL HISTORY: L3-S1 spinal fusion. Fluoro time: 38 seconds Ka,r: 59.00 mGy FINDINGS: 2 spot fluoroscopic views of the lumbar spine are presented. There has been discectomy at L 3-L4, L4-L5, and L5-S1 with laminectomy and posterior fusion at L3-S1. Interpedicular screws are pres ent at all levels. The orthopedic hardware appears intact. IMPRESSION: Intraoperative images from lumbar spinal fusion surgery as above. Electronically signed by: Sukh Morales M.D. 08/23/2022 2:48 PM
[2022-08-23] MEDS: fentaNYL citrate PF 100 MCG/2 ML VIAL IV PRN ×2 (15:17→15:22)
--- NOTE | 2022-08-23 15:35 | Anesthesiology Progress Note ---
Date of Service August 23, 2022 Anesthesia Post Procedure Vital Signs Vital Signs: Temp Pulse Pulse Resp BP Pulse Ox O2 Del Method 08/23/22 15:25 73 12 157/60 H 100 Oxymask 08/23/22 15:15 74 12 140/58 L 100 Oxymask 08/23/22 15:05 69 17 111/74 99 Oxymask 08/23/22 14:55 85 18 152/85 H 100 Oxymask 08/23/22 14:47 36.7 C 82 17 170/64 H 99 Oxymask 08/23/22 10:59 36.9 C 76 16 185/64 H 98 Room Air O2 Flow Rate 08/23/22 15:25 2 08/23/22 15:15 4 08/23/22 15:05 4 08/23/22 14:55 6 08/23/22 14:47 6 08/23/22 10:59 Pain Intensity Medial Back: Pain Intensity: 2 Transfer of Care Handoff Completed per policy Notes Mental Status: alert / awake / arousable Patient Amnestic to Procedure: Yes Nausea / Vomiting: adequately controlled Pain: adequately controlled Airway Patency, RR, SpO2: stable & adequate BP & HR: stable & adequate Hydration State: stable & adequate Anesthetic Complications: no major complications apparent
[2022-08-23] MEDS ORDERED: traMADol HCL 50 MG TABLET PO PRN (16:11)
[2022-08-23] MEDS ORDERED: FAMOTIDINE 20 MG TAB PO PRN (16:11)
[2022-08-23] MEDS ORDERED: PROMETHAZINE HCL 12.5 MG in SODIUM CHLORIDE 0.9% 50 ML IV PRN (16:11)
[2022-08-23] MEDS ORDERED: ACETAMINOPHEN 1,000 MG/100 ML VIAL IV PRN (16:11)
[2022-08-23] MEDS ORDERED: HYDROmorphone INJ 0.5 MG/0.5 ML SYR IV PRN (16:11)
[2022-08-23] MEDS ORDERED: METOCLOPRAMIDE HCL INJ 5 MG/ML 2 ML VIAL IV PRN (16:11)
[2022-08-23] MEDS ORDERED: diphenhydrAMINE Capsule 25 MG CAP PO PRN (16:11)
[2022-08-23] MEDS ORDERED: ONDANSETRON 4 MG OD TAB PO PRN (16:11)
[2022-08-23] MEDS ORDERED: DO NOT ADMINISTER PNEUMOCOCCAL VACCINE PRN (16:11)
[2022-08-23] MEDS ORDERED: ALUMINUM/MAGNESIUM SUSP 30 ML UDC PO PRN (16:11)
[2022-08-23] MEDS ORDERED: MAGNESIUM HYDROXIDE SUSP 30 ML UDC PO PRN (16:11)
[2022-08-23] MEDS ORDERED: LORazepam 2 MG/1 ML VIAL IV PRN (16:11)
[2022-08-23] MEDS ORDERED: LORazepam 0.5 MG TAB PO PRN (16:11)
[2022-08-23] MEDS ORDERED: bisacodyL 10 MG SUPP PR PRN (16:11)
[2022-08-23] MEDS ORDERED: DO NOT ADMINISTER FLU VACCINE PRN (16:11)
[2022-08-23] MEDS ORDERED: NALOXONE HCL 0.4 MG/1 ML VIAL/CARP IV PRN (16:11)
[2022-08-23] MEDS ORDERED: hydrOXYzine HCl 25 MG TAB PO PRN (16:11)
[2022-08-23] MEDS ORDERED: NON-FORMULARY MEDICATION (Semaglutide [Ozempic] 0.25 mg or 0.5 mg (2 mg/3 mL) pen injector SQ SCH (16:11)
[2022-08-23] MEDS ORDERED: PHARMACY GLYCEMIC MGMT CONSULT PRN (16:11)
[2022-08-23] MEDS ORDERED: SOD PHOSPHATE/SOD BIPHOSPHATE ENEMA 132 ML BTL PR PRN (16:11)
[2022-08-23] MEDS ORDERED: CARBOHYDRATES FOR HYPOGLYCEMIA PO PRN (16:45)
[2022-08-23] MEDS ORDERED: GLUCAGON FOR INJ 1 MG VIAL IM PRN (16:45)
[2022-08-23] MEDS ORDERED: GLUCOSE 10 TAB/TUBE PO PRN (16:45)
[2022-08-23] MEDS ORDERED: DEXTROSE 50% 50 ML SYRINGE IV PRN (16:45)
[2022-08-23] MEDS ORDERED: GLUCOSE 40% GEL 15 GM TUBE PO PRN (16:45)
[2022-08-23] MEDS: oxyCODONE HCL IR 5 MG TAB (IMMEDIATE RELEASE) PO PRN ×2 (16:57→23:17)
[2022-08-23] MEDS: SODIUM CHLORIDE 0.9% 1000ML 1,000 ML IV SCH ×2 (17:04→23:25)
[2022-08-23] MEDS: INSULIN ASPART PER UNIT CHARGE SC SCH ×2 (18:49→20:45)
[2022-08-23] MEDS: CLINDAMYCIN/D5W 600 MG/50 ML BAG IV SCH (20:01)
[2022-08-23] MEDS: GABAPENTIN 800 MG TAB PO SCH (20:02)
[2022-08-23] MEDS: MAGNESIUM OXIDE 400 MG TAB PO SCH (20:02)
[2022-08-23] MEDS: DOCUSATE SODIUM/SENNA 50/8.6MG TAB PO SCH (20:02)
[2022-08-23] MEDS: lisinopril 40 MG TAB PO SCH (20:02)
[2022-08-23] MEDS: busPIRone 15 MG TAB PO SCH (20:02)
[2022-08-23] MEDS: ATORVASTATIN 10 MG TAB PO SCH (20:03)
[2022-08-23] MEDS: CHOLECALCIFEROL 1,000 UNITS 25 MCG TAB PO SCH (20:03)
[2022-08-23] MEDS: DULoxetine HCL 60 MG CAP PO SCH (20:03)
[2022-08-23] MEDS: CYANOCOBALAMIN (B-12) 500 MCG TABLET PO SCH (20:03)
[2022-08-23] MEDS: PANTOprazole 40 MG TAB PO SCH (20:45)
[2022-08-23] MEDS: FEXOFENADINE HCL 180 MG TAB PO SCH (20:45)
[2022-08-23] MEDS: ASCORBIC ACID 500 MG TAB PO SCH (20:45)
[2022-08-23] MEDS: FLUTICASONE/VILANTEROL 200/25MCG 14 PUFFS/INHALER INH SCH (20:45)
[2022-08-23] MEDS: LANTUS PER UNIT CHARGE SC SCH (20:52)
[2022-08-24] MEDS: oxyCODONE HCL IR 5 MG TAB (IMMEDIATE RELEASE) PO PRN ×4 (03:40→20:52)
[2022-08-24] MEDS: CLINDAMYCIN/D5W 600 MG/50 ML BAG IV SCH (03:41)
[2022-08-24] MEDS: SODIUM CHLORIDE 0.9% 1000ML 1,000 ML IV SCH (05:19)
[2022-08-24] MEDS: POLYETHYLENE (MIRALAX) 17 GM PACK PO SCH ×3 (05:22→17:35)
--- NOTE | 2022-08-24 07:44 | Pharmacy Report ---
Pharmacy Glycemic Short Note 2 - Date of Service August 24, 2022 - Glycemic Short BSG Results (Last 24 hours): 08/23/22 08/23/22 08/23/22 10:46 14:50 16:57 POC Glucose 110 H 121 H 135 H 08/23/22 20:32 POC Glucose 140 H OUTPATIENT ANTIDIABETIC REGIMEN: * Tresiba 20 units SQ HS * Semaglutide 0.5mg SQ Weekly * Metformin 1g PO BID ASSESSMENT: * 71 year old female, Type 2 DM, BMI 49, s/p spinal decompression and fusion POD1. * Patient had 16 units basal last night, 5 units bolus with dinner (CF/CR 13/10). Blood sugars at goal. * Starting Dexamethasone 6mg IV daily x3 days today, tighten CF/CR and increase HS basal at this time to cover steroid effects. PLAN FOR INPATIENT GLYCEMIC CONTROL: * Hold oral diabetes medications * Basal insulin * Lantus 20-30 units SQ HS (20 units for BSG 140mg/dl or less, 30 units for BSG > 140mg/dl) * Bolus insulin * NovoLog per scale ACHS or Q6hrs while NPO * Goal Range: Low 110 mg/dL - High 140 mg/dL * Correction Factor: 15 mg/dL/unit * Nutritional / Prandial insulin per carb ratio of 1 unit per 5 grams CHO consumed
[2022-08-24 07:52] LABS: Basophils # (auto) 0.06 K/uL (0-0.2); Basophils % (auto) 0.8 %; Eosinophils # (auto) 0.02 K/uL (0-0.50); Eosinophils % (auto) 0.3 %; Hematocrit (blood only) 25.6 % (37.0-47.0); Immature Granulocytes # (auto) 0.02 K/uL (0.01-0.20); Immature Granulocytes % (auto) 0.3 %; Lymphocytes # (auto) 1.75 K/uL (1.2-3.4); Lymphocytes % (auto) 24.6 %; Mean Corpuscular Hemoglobin 28.8 pg (25.0-34.0); Mean Corpuscular Hgb Conc 31.3 g/dL (32.0-36.0); Mean Corpuscular Volume 92.1 fL (80.0-100.0); Mean Platelet Volume 10.1 fL (9.4-12.4); Monocytes # (auto) 0.62 K/uL (0.11-0.59); Monocytes % (auto) 8.7 %; Neutrophils # (auto) 4.65 K/uL (1.40-6.50); Neutrophils % (auto) 65.3 %; Platelet Count 203 K/uL (130-400); RDW Coefficient of Variation 13.6 % (11.5-14.5); RDW Standard Deviation 45.9 fL (36.4-46.3); Red Blood Count 2.78 M/uL (4.20-5.40); White Blood Count 7.12 K/ul (4.8-10.8)
[2022-08-24 08:09] LABS: Potassium 4.5 mmol/L (3.5-5.1)
[2022-08-24 08:14] LABS: BUN Creatinine Ratio 19.6 (10-20); Creatinine Clr Calc Pharmacy 79.6 ml/min; Est GFR (African American) 73.6 ml/min; Est GFR (Non-African American) 63.5 ml/min
[2022-08-24] MEDS: busPIRone 15 MG TAB PO SCH ×2 (08:22→20:53)
[2022-08-24] MEDS: dexAMETHasone 6 MG in SYRINGE 0 ML IV SCH (08:22)
[2022-08-24] MEDS: FERROUS SULFATE 325 MG TAB PO SCH (08:23)
[2022-08-24] MEDS: FLUTICASONE PROPIONATE NA SPR 16 GM BTL SCH (08:23)
[2022-08-24] MEDS: GABAPENTIN 800 MG TAB PO SCH ×3 (08:23→20:52)
[2022-08-24] MEDS: ASPIRIN 81 MG ECTAB PO SCH (08:23)
[2022-08-24] MEDS: MULTIVITAMIN TAB PO SCH (08:23)
[2022-08-24] MEDS: INSULIN ASPART PER UNIT CHARGE SC SCH ×4 (09:30→20:53)
[2022-08-24] MEDS: ASCORBIC ACID 500 MG TAB PO SCH ×3 (09:49→20:52)
--- NOTE | 2022-08-24 09:52 | Orthopedic Progress Note ---
Date of Service August 24, 2022 Assessment & Plan (1) Lumbar spinal stenosis: Plan: At this time we will continue physical therapy monitor ROSAMARIA output hopefully discharge home Monday. Admission and Anticipated Discharge Date Admission Date: August 23, 2022 Subjective Back pain controlled leg pain improved Physical Exam Physical Exam: Patient is in the chair at the bedside. Appears comfortable. Discussing the testing. Results & Data Vital Signs (Past 12 Hours) Vital Signs Temp Pulse Resp BP Pulse Ox O2 Del Method O2 Flow Rate 08/24/22 09:45 129/72 08/24/22 08:14 88 95 Room Air 95 08/24/22 07:09 36.5 C 81 17 111/56 L 99 Room Air 08/24/22 03:47 36.6 C 77 18 128/76 99 Room Air 08/23/22 23:08 36.6 C 83 18 138/72 99 Room Air
--- NOTE | 2022-08-24 10:52 | Hospitalist Consultation ---
Date of Consultation August 24, 2022 Assessment & Plan (1) Lumbar spinal stenosis: S/p lumbar decompression and fusion 08/23 Postoperative management as per orthopedic spine surgery Pain control, bowel regimen Hemoglobin with drop from 10.4-8.0 from acute blood loss anemia in setting of chronic anemia (2) Anemia: acute blood loss anemia on chronic anemia, normocytic takes B12 at home, last transferrin sat low at 9% hgb 8.0 now from baseline 10.4 follow CBC in AM check Fe studies, B12, folate in AM and replace as needed needs outpt GI f/u if not done recently-last colonoscopy in 2019 and I don't see EGD (3) Acid reflux disease: Continue home Protonix (4) Asthma: No acute issues Bronchodilators as needed (5) CKD (chronic kidney disease): Kidney function at baseline, CKD stage III-IV -Avoid nephrotoxins -renally dose meds when appropriate -follow BMP -continue lisinopril -holding home amiliroide/HCTZ (6) Depression with anxiety: stable continue duloxetine, buspirone (7) HTN (hypertension): BPs stable continue lisinopril (8) Peripheral sensory neuropathy due to type 2 diabetes mellitus: continue gabapentin (9) Type 2 diabetes mellitus: holding home ozempic continue insulin here, basal and bolus Pharmacy managing (10) Vitamin D deficiency: continue home vit d Plan DVT proph-SCDs Dispo-continued stay, hospitalist service will follow along History of Present Illness Reason for Consultation: Medical management Requesting Physician: Dr. Baker Attending Physician: Wan Baker, DO History of Present Illness This patient is a 71-year-old female with history of DM2, HTN, vitamin D deficiency, adrenal nodule, depression with anxiety, GERD, asthma, anemia, hyperlipidemia, and CKD stage III who is admitted to the hospital after having lumbar decompression and fusion with Dr. Baker on 08/23. She had some lightheadedness with getting out of bed initially this AM with PT but it went away. Has some pain in lower back but radiating pain down RLE is gone. Denies nausea, CP, SOB. Allergies Allergy/AdvReac Type Severity Reaction Status Date / Time empagliflozin Allergy Intermediate CAUSED Verified 08/10/22 11:17 [From Jardiance] KIDNEY DISEASE SHORT TERM nickel Allergy Intermediate localized Verified 08/10/22 11:17 rash Penicillins Allergy Intermediate RASH Verified 08/10/22 11:17 Home Medications Medication Instructions Recorded Confirmed Type ascorbic acid (vitamin C) 1,000 mg 1 tab PO TID 06/12/18 08/23/22 History tablet (Vitamin C) aspirin 81 mg tablet,delayed 81 mg PO QAM 06/12/18 08/23/22 History release cholecalciferol (vitamin D3) 25 4,000 unit PO HS 06/12/18 08/23/22 History mcg (1,000 unit) capsule (Vitamin D3) ferrous sulfate 325 mg (65 mg 325 mg PO QAM 06/12/18 08/23/22 History iron) tablet (Iron (ferrous sulfate)) fluticasone propionate 50 1 spray intranasal QAM 06/12/18 08/23/22 History mcg/actuation nasal spray,suspension (Flonase Allergy Relief) multivitamin 1 tab PO QAM 06/12/18 08/23/22 History compr.stocking,thigh,short,lrg #2 ea 09/04/19 08/10/22 Rx OneTouch Delica Plus Lancet 33 #400 ea 09/23/19 08/10/22 Rx gauge (lancets) acetaminophen 500 mg tablet 1,000 mg PO TID PRN pain 10/19/20 08/23/22 History fluticasone 250 mcg-salmeterol 50 1 inh inhalation BID #180 ea 10/18/21 08/23/22 Rx mcg/dose blistr powdr for inhalation (Advair Diskus) metformin 500 mg 24 hr 1,000 mg PO BID #360 tabs 02/24/22 08/23/22 Rx tablet,extended release OneTouch Verio test strips (blood #400 ea 04/21/22 08/10/22 Rx sugar diagnostic) insulin degludec 100 unit/mL (3 See Rx Instructions subcut HS 05/09/22 08/23/22 History mL) subcutaneous pen (Tresiba FlexTouch U-100 insulin) baclofen 10 mg tablet 10 mg PO BID #180 tabs 05/24/22 08/23/22 Rx fexofenadine 180 mg tablet 180 mg PO BID 06/22/22 08/23/22 History (Luda Allergy) gabapentin 800 mg tablet 800 mg PO TID #270 tabs 07/14/22 08/23/22 Rx atorvastatin 10 mg tablet 10 mg PO HS 08/01/22 08/23/22 History buspirone 15 mg tablet 15 mg PO BID 08/01/22 08/23/22 History cyanocobalamin (vitamin B-12) 1,000 mcg PO QPM 08/01/22 08/23/22 History 1,000 mcg tablet (Vitamin B-12) duloxetine 60 mg capsule,delayed 60 mg PO HS 08/01/22 08/23/22 History release lisinopril 40 mg tablet 40 mg PO HS 08/01/22 08/23/22 History magnesium 250 mg tablet 250 mg PO HS 08/01/22 08/23/22 History omeprazole 20 mg capsule,delayed 20 mg PO QPM 08/01/22 08/23/22 History release semaglutide 0.25 mg or 0.5 mg (2 0.5 mg subcut WK 08/01/22 08/23/22 History mg/3 mL) subcutaneous pen injector (Ozempic) amiloride 5 mg-hydrochlorothiazide See Rx Instructions .Route 08/02/22 08/10/22 Rx 50 mg tablet .COMPLEX #90 tabs metoprolol succinate 50 mg See Rx Instructions .Route 08/02/22 08/10/22 Rx tablet,extended release 24 hr .COMPLEX #90 tabs oxycodone 5 mg tablet 5 mg PO Q6H PRN pain #30 tabs 08/24/22 Rx tramadol 50 mg tablet 50 mg PO Q6H PRN pain, moderate 08/24/22 Rx #30 tabs Patient History Medical History (Updated 08/24/22 @ 17:32 by Na Bains MD) Acid reflux disease Adrenal nodule pt unaware. medical record found with MRI 10/01/19 Anemia Asthma well controlled, stable per pt-does not need rescue inhaler Walton's palsy hx. ~2018 Cardiac murmur mild, no problems. Chronic back pain CKD (chronic kidney disease) monitoring levels currently. Depression with anxiety Diabetes mellitus, type 2 IDDM History of colon polyps Hyperlipidemia Hypertension controlled, stable per pt Kidney stones Peripheral neuropathy feet Surgical History History of breast biopsy with clip (Right breast)-benign History of carpal tunnel surgery of right wrist History of cholecystectomy History of colonoscopy last done [facility] 2019 History of cryosurgery History of hysteroscopy History of lithotripsy History of surgical removal of pilonidal cyst History of tooth extraction S/P epidural steroid injection Family History Grandmother (Maternal) Diabetes Grandmother (Paternal) Diabetes Father Diabetes Brother Pacemaker Other No family history of adverse response to anesthesia Denies family history of Ovarian cancer Breast cancer Colorectal cancer Social History Smoking Status: Former smoker Tobacco Type: Cigarettes Age Started Using Tobacco: 19; Age Quit Using Tobacco: 37; packs per day: 1.5; Smoking End Date: 1992; Second Hand Exposure: No; Do You Dip or Chew Tobacco: No; Tobacco Cessation Education Requested by Patient: No Hx Alcohol Use: No Hx Substance Use: No Preferred Language: Cuban Communication Ability: Effective Visual Impairment: Limited Hearing Ability: Normal Manager Of Case Required: No Beliefs That Will Affect Care: None marital status: Current Living Situation: Spouse current occupational status: retired Other Information That Helps Us Care for You: No Feels Safe at Home: Yes Safety Concerns: Feels Safe At This Time Childhood Exposure to Second-Hand Smoke: No Diet: low carbohydrate caffeine: Yes Dental Care, Regularly: Yes Physical Activity Frequency: Does not Exercise Seatbelt Use: always Sunscreen Use: Yes Do you think of yourself as: straight/heterosexual Assistive Devices: Walker Review of Systems Review of Systems: All systems reviewed & are unremarkable except as noted in HPI & below Physical Exam Constitutional: WD/WN, vitals as above + obese Neck: trachea midline, no thyromegaly Respiratory: normal respiratory effort, lungs clear to auscultation Cardiovascular: RRR, no murmur, no edema Chest (Breasts): Chest: normal inspection of chest Gastrointestinal (Abdomen): normal bowel sounds, soft, nontender, no hepatosplenomegaly Musculoskeletal: Extremities: extremities normal to inspection; no cyanosis and no clubbing Skin: no rashes, warm and dry Neurologic: moves all extremities and awake; no focal motor deficits Psychiatric: A+Ox3, euthymic affect Lymphatic: no lymphedema Results & Data Results & Data Vital Signs (Past 12 Hours) Vital Signs Temp Pulse Resp BP Pulse Ox O2 Del Method O2 Flow Rate 08/24/22 09:45 129/72 08/24/22 08:14 88 95 Room Air 95 08/24/22 07:09 36.5 C 81 17 111/56 L 99 Room Air 08/24/22 03:47 36.6 C 77 18 128/76 99 Room Air 08/23/22 23:08 36.6 C 83 18 138/72 99 Room Air Laboratory Results CBC, BMP reviewed PG Care Time/CCT Total # of Minutes Spent Total Time Spent with Patient: Total time spent is greater than 50% in coordination of care (as documented) at patient's floor/unit and/or counseling patient: Coding Level of Care Code 08440 IN/OBS CONSULT LVL 3,45M Diagnoses Lumbar spinal stenosis M48.061 Anemia D64.9 Acid reflux disease K21.9 Asthma J45.909 CKD (chronic kidney disease) N18.31 Chronic kidney disease stage: stage 3 (moderate) Chronic kidney disease stage 3 subtype: stage 3a (GFR 45-59) Depression with anxiety F41.8 HTN (hypertension) I10 Hypertension type: essential hypertension Peripheral sensory neuropathy due to type 2 diabetes mellitus E11.42 Type 2 diabetes mellitus E11.9 Vitamin D deficiency E55.9 (5) CKD (chronic kidney disease) Chronic kidney disease stage: stage 3 (moderate) Chronic kidney disease stage 3 subtype: stage 3a (GFR 45-59) Qualified Code(s): N18.31 - Chronic kidney disease, stage 3a (7) HTN (hypertension) Hypertension type: essential hypertension Qualified Code(s): I10 - Essential (primary) hypertension
[2022-08-24] MEDS: MAGNESIUM OXIDE 400 MG TAB PO SCH (20:52)
[2022-08-24] MEDS: CYANOCOBALAMIN (B-12) 500 MCG TABLET PO SCH (20:52)
[2022-08-24] MEDS: CHOLECALCIFEROL 1,000 UNITS 25 MCG TAB PO SCH (20:52)
[2022-08-24] MEDS: DULoxetine HCL 60 MG CAP PO SCH (20:53)
[2022-08-24] MEDS: DOCUSATE SODIUM/SENNA 50/8.6MG TAB PO SCH (20:53)
[2022-08-24] MEDS: FEXOFENADINE HCL 180 MG TAB PO SCH (20:53)
[2022-08-24] MEDS: FLUTICASONE/VILANTEROL 200/25MCG 14 PUFFS/INHALER INH SCH (20:53)
[2022-08-24] MEDS: lisinopril 40 MG TAB PO SCH (20:53)
[2022-08-24] MEDS: PANTOprazole 40 MG TAB PO SCH (20:53)
[2022-08-24] MEDS: ATORVASTATIN 10 MG TAB PO SCH (20:53)
[2022-08-24] MEDS: LANTUS PER UNIT CHARGE SC SCH (20:54)
[2022-08-25] MEDS: POLYETHYLENE (MIRALAX) 17 GM PACK PO SCH ×4 (00:57→17:34)
[2022-08-25] MEDS: oxyCODONE HCL IR 5 MG TAB (IMMEDIATE RELEASE) PO PRN ×3 (05:37→22:25)
[2022-08-25 06:04] LABS: Basophils # (auto) 0.06 K/uL (0-0.2); Basophils % (auto) 0.5 %; Eosinophils # (auto) 0.01 K/uL (0-0.50); Eosinophils % (auto) 0.1 %; Hematocrit (blood only) 25.6 % (37.0-47.0); Hemoglobin 8.1 g/dl (12.0-16.0); Immature Granulocytes # (auto) 0.05 K/uL (0.01-0.20); Immature Granulocytes % (auto) 0.4 %; Lymphocytes # (auto) 3.18 K/uL (1.2-3.4); Lymphocytes % (auto) 28.2 %; Mean Corpuscular Hemoglobin 28.9 pg (25.0-34.0); Mean Corpuscular Hgb Conc 31.6 g/dL (32.0-36.0); Mean Corpuscular Volume 91.4 fL (80.0-100.0); Monocytes # (auto) 1.24 K/uL (0.11-0.59); Neutrophils # (auto) 6.74 K/uL (1.40-6.50); Neutrophils % (auto) 59.8 %; Platelet Count 246 K/uL (130-400); RDW Coefficient of Variation 13.8 % (11.5-14.5); RDW Standard Deviation 46.5 fL (36.4-46.3); White Blood Count 11.28 K/ul (4.8-10.8)
[2022-08-25 06:12] LABS: Calcium 8.6 mg/dl (8.6-10.3); Creatinine Clr Calc Pharmacy 64.2 ml/min; Est GFR (African American) 56.8 ml/min; Magnesium 1.8 mg/dl (1.7-2.4); Potassium 4.5 mmol/L (3.5-5.1)
[2022-08-25] MEDS: ACETAMINOPHEN 500 MG TAB PO PRN ×2 (07:25→15:09)
--- NOTE | 2022-08-25 08:24 | Orthopedic Progress Note ---
Date of Service August 25, 2022 Assessment & Plan (1) Lumbar spinal stenosis: Plan: This time continue physical therapy monitor ROSAMARIA output plan for discharge in next few days most likely with home health. Admission and Anticipated Discharge Date Admission Date: August 23, 2022 Subjective Back pain controlled leg pain improved Physical Exam Physical Exam: Patient is not currently in bed. She is comfortable. She is good strength testing. Results & Data Vital Signs (Past 12 Hours) Vital Signs Temp Pulse Resp BP Pulse Ox O2 Del Method 08/25/22 07:19 36.9 C 99 H 17 169/63 H 95 Room Air 08/24/22 20:50 Room Air 08/24/22 22:28 108 H 169/73 H 08/24/22 20:43 37.4 C 103 H 16 180/132 H 92 Room Air Queries Orthopedic Spine Obesity: Yes
[2022-08-25] MEDS: INSULIN ASPART PER UNIT CHARGE SC SCH ×4 (08:47→20:40)
[2022-08-25] MEDS: dexAMETHasone 6 MG in SYRINGE 0 ML IV SCH (08:49)
[2022-08-25] MEDS: FERROUS SULFATE 325 MG TAB PO SCH (08:51)
[2022-08-25] MEDS: MULTIVITAMIN TAB PO SCH (08:51)
[2022-08-25] MEDS: busPIRone 15 MG TAB PO SCH ×2 (08:52→20:37)
[2022-08-25] MEDS: ASPIRIN 81 MG ECTAB PO SCH (08:52)
[2022-08-25] MEDS: GABAPENTIN 800 MG TAB PO SCH ×3 (08:52→20:37)
[2022-08-25] MEDS: ASCORBIC ACID 500 MG TAB PO SCH ×3 (08:52→20:36)
[2022-08-25] MEDS: FLUTICASONE PROPIONATE NA SPR 16 GM BTL SCH (08:54)
[2022-08-25] MEDS ORDERED: LANTUS PER UNIT CHARGE SC ONE (09:00)
[2022-08-25] MEDS ORDERED: IRON SUCROSE 300 MG in SODIUM CHLORIDE 0.9% 250 ML IV ONE (09:30)
--- NOTE | 2022-08-25 12:38 | Hospitalist Progress Note ---
Date of Service August 25, 2022 Assessment & Plan (1) Lumbar spinal stenosis: Plan: S/p lumbar decompression and fusion 08/23 Postoperative management as per orthopedic spine surgery-doing well Pain control, bowel regimen Hemoglobin with drop from 10.4-8.0 from acute blood loss anemia in setting of chronic anemia-hgbstable today Plan for home with home health possibly in 1 day (2) Anemia: Plan: acute blood loss anemia on chronic anemia, normocytic takes B12 at home, last transferrin sat low at 9% and now lower at 5% hgb 8.1 now from baseline 10.4 Fe studies low, unknown etiology B12/folate, TSH all normal -follow CBC in AM -give Venofer 300mg IV daily x 2-3 doses depending o how long she is here -needs outpt GI f/u if not done recently-last colonoscopy in 2019 and has never had EGD-advised her to f/u with GI as outpt (3) Acid reflux disease: Plan: Continue home Protonix (4) Asthma: Plan: No acute issues Bronchodilators as needed (5) CKD (chronic kidney disease): Plan: Kidney function at baseline, CKD stage III-IV -Avoid nephrotoxins -renally dose meds when appropriate -follow BMP -continue lisinopril -restart home amiloride/HCTZ (6) Depression with anxiety: Plan: stable continue duloxetine, buspirone (7) HTN (hypertension): Plan: BPs now rising continue lisinopril restart home amiloride/HCTZ watch BMP as Na+ already slightly low today (8) Peripheral sensory neuropathy due to type 2 diabetes mellitus: Plan: continue gabapentin (9) Type 2 diabetes mellitus: Plan: holding home ozempic continue insulin here, basal and bolus Pharmacy managing (10) Vitamin D deficiency: Plan: continue home vit d Plan DVT proph-SCDs Dispo-continued stay, hospitalist service will follow along, likely dc to home tomorrow Admission and Anticipated Discharge Date Admission Date: August 23, 2022 Subjective Pt feels better today, got more rest, pain controlled, ambulated in the halls. Denies CP, SOB, lightheadedness Review of Systems Review of Systems: All systems reviewed & are unremarkable except as noted in HPI & below Physical Exam Constitutional: WD/WN, vitals as above + obese Neck: trachea midline, no thyromegaly Respiratory: normal respiratory effort, lungs clear to auscultation Cardiovascular: RRR, no murmur, no edema Chest (Breasts): Chest: normal inspection of chest Gastrointestinal (Abdomen): normal bowel sounds, soft, nontender, no hepatosplenomegaly Musculoskeletal: Extremities: extremities normal to inspection; no cyanosis and no clubbing Skin: no rashes, warm and dry Neurologic: moves all extremities and awake; no focal motor deficits Psychiatric: A+Ox3, euthymic affect Lymphatic: no lymphedema Results & Data Results & Data Vital Signs (Past 12 Hours) Vital Signs Temp Pulse Resp BP Pulse Ox O2 Del Method 08/25/22 07:19 36.9 C 99 H 17 169/63 H 95 Room Air Laboratory Results CBC, BMP reviewed iron studies reviewed PG Care Time/CCT Total # of Minutes Spent Total Time Spent with Patient: Total time spent is greater than 50% in coordination of care (as documented) at patient's floor/unit and/or counseling patient: Coding Level of Care Code 56180 SUB INP/OBS CARE 2/35MIN Diagnoses Lumbar spinal stenosis M48.061 Anemia D64.9 Acid reflux disease K21.9 Asthma J45.909 CKD (chronic kidney disease) N18.31 Chronic kidney disease stage: stage 3 (moderate) Chronic kidney disease stage 3 subtype: stage 3a (GFR 45-59) Depression with anxiety F41.8 HTN (hypertension) I10 Hypertension type: essential hypertension Peripheral sensory neuropathy due to type 2 diabetes mellitus E11.42 Type 2 diabetes mellitus E11.9 Vitamin D deficiency E55.9 (5) CKD (chronic kidney disease) Chronic kidney disease stage: stage 3 (moderate) Chronic kidney disease stage 3 subtype: stage 3a (GFR 45-59) Qualified Code(s): N18.31 - Chronic kidney disease, stage 3a (7) HTN (hypertension) Hypertension type: essential hypertension Qualified Code(s): I10 - Essential (primary) hypertension
[2022-08-25] MEDS: DULoxetine HCL 60 MG CAP PO SCH (20:36)
[2022-08-25] MEDS: PANTOprazole 40 MG TAB PO SCH (20:36)
[2022-08-25] MEDS: FEXOFENADINE HCL 180 MG TAB PO SCH (20:36)
[2022-08-25] MEDS: lisinopril 40 MG TAB PO SCH (20:36)
[2022-08-25] MEDS: CHOLECALCIFEROL 1,000 UNITS 25 MCG TAB PO SCH (20:36)
[2022-08-25] MEDS: CYANOCOBALAMIN (B-12) 500 MCG TABLET PO SCH (20:36)
[2022-08-25] MEDS: ATORVASTATIN 10 MG TAB PO SCH (20:36)
[2022-08-25] MEDS: DOCUSATE SODIUM/SENNA 50/8.6MG TAB PO SCH (20:37)
[2022-08-25] MEDS: MAGNESIUM OXIDE 400 MG TAB PO SCH (20:37)
[2022-08-25] MEDS: FLUTICASONE/VILANTEROL 200/25MCG 14 PUFFS/INHALER INH SCH (20:37)
[2022-08-25] MEDS ORDERED: LANTUS PER UNIT CHARGE SC SCH (21:00)
[2022-08-26] MEDS: oxyCODONE HCL IR 5 MG TAB (IMMEDIATE RELEASE) PO PRN ×3 (02:41→22:40)
[2022-08-26] MEDS: POLYETHYLENE (MIRALAX) 17 GM PACK PO SCH ×5 (06:02→22:40)
[2022-08-26 07:39] LABS: Basophils # (auto) 0.07 K/uL (0-0.2); Basophils % (auto) 0.7 %; Eosinophils # (auto) 0.04 K/uL (0-0.50); Eosinophils % (auto) 0.4 %; Hematocrit (blood only) 24.4 % (37.0-47.0); Hemoglobin 7.7 g/dl (12.0-16.0); Immature Granulocytes # (auto) 0.06 K/uL (0.01-0.20); Immature Granulocytes % (auto) 0.6 %; Lymphocytes # (auto) 2.19 K/uL (1.2-3.4); Lymphocytes % (auto) 22.6 %; Mean Corpuscular Hemoglobin 28.4 pg (25.0-34.0); Mean Corpuscular Hgb Conc 31.6 g/dL (32.0-36.0); Mean Platelet Volume 10.3 fL (9.4-12.4); Monocytes # (auto) 1.02 K/uL (0.11-0.59); Monocytes % (auto) 10.5 %; Neutrophils # (auto) 6.31 K/uL (1.40-6.50); Neutrophils % (auto) 65.2 %; Platelet Count 238 K/uL (130-400); RDW Coefficient of Variation 13.8 % (11.5-14.5); RDW Standard Deviation 45.2 fL (36.4-46.3); Red Blood Count 2.71 M/uL (4.20-5.40); White Blood Count 9.69 K/ul (4.8-10.8)
[2022-08-26 08:00] LABS: BUN Creatinine Ratio 14.5 (10-20); Calcium 8.8 mg/dl (8.6-10.3); Creatinine Clr Calc Pharmacy 66.6 ml/min; Est GFR (African American) 59.3 ml/min; Est GFR (Non-African American) 51.2 ml/min; Magnesium 1.8 mg/dl (1.7-2.4); Potassium 4.7 mmol/L (3.5-5.1)
[2022-08-26 08:02] LABS: RBC Morphology Unremarkable
[2022-08-26] MEDS: INSULIN ASPART PER UNIT CHARGE SC SCH ×4 (08:46→21:11)
[2022-08-26] MEDS ORDERED: LANTUS PER UNIT CHARGE SC ONE (09:00)
[2022-08-26] MEDS: IRON SUCROSE 300 MG in SODIUM CHLORIDE 0.9% 250 ML IV SCH (09:42)
[2022-08-26] MEDS: dexAMETHasone 6 MG in SYRINGE 0 ML IV SCH (09:44)
[2022-08-26] MEDS: GABAPENTIN 800 MG TAB PO SCH ×3 (09:46→19:57)
[2022-08-26] MEDS: MULTIVITAMIN TAB PO SCH (09:46)
[2022-08-26] MEDS: FLUTICASONE PROPIONATE NA SPR 16 GM BTL SCH (09:46)
[2022-08-26] MEDS: FERROUS SULFATE 325 MG TAB PO SCH (09:47)
[2022-08-26] MEDS: ASPIRIN 81 MG ECTAB PO SCH (09:47)
[2022-08-26] MEDS: ASCORBIC ACID 500 MG TAB PO SCH ×3 (09:47→19:55)
[2022-08-26] MEDS: busPIRone 15 MG TAB PO SCH ×2 (09:47→19:56)
--- NOTE | 2022-08-26 10:07 | Orthopedic Progress Note ---
Date of Service August 26, 2022 Assessment & Plan (1) Lumbar spinal stenosis: Plan: At this time she is receiving IV iron. We will continue with physical therapy as tolerated. Hopefully discharge home tomorrow with home health. Admission and Anticipated Discharge Date Admission Date: August 23, 2022 Subjective Back pain controlled leg pain improved Physical Exam Physical Exam: Patient is in bed at this time. She is comfortable. Is good strength testing. Results & Data Vital Signs (Past 12 Hours) Vital Signs Temp Pulse Resp BP Pulse Ox O2 Del Method 08/26/22 07:09 36.7 C 88 18 149/67 H 96 Room Air Queries Orthopedic Spine Acute Posthemorrhagic Anemia: Yes Obesity: Yes
--- NOTE | 2022-08-26 13:43 | Pharmacy Report ---
Pharmacy Glycemic Short Note 2 - Date of Service August 26, 2022 - Glycemic Short BSG Results (Last 24 hours): 08/25/22 08/25/22 08/26/22 17:14 20:39 06:43 Glucose 160 H POC Glucose 176 H 136 H 08/26/22 08/26/22 08:09 12:10 Glucose POC Glucose 163 H 151 H OUTPATIENT ANTIDIABETIC REGIMEN: * Tresiba 20 units SQ HS * Semaglutide 0.5mg SQ Weekly * Metformin 1g PO BID ASSESSMENT: * Patient's BSGs yesterday [phone] mg/dL. Patient received 71 units of insulin (40 units of basal and 31 units of bolus). * Fasting today is 163 mg/dL. * For basal, will give Lantus 15 units this morning (increased from 10 units yesterday). Decrease PM basal to home dose of 20 units. * Tighten Novolog since BSGs trended upwards yesterday. BACKGROUND * 71 year old female, Type 2 DM, BMI 49, s/p spinal decompression and fusion POD1. * Patient had 16 units basal last night, 5 units bolus with dinner (CF/CR 20/7). Blood sugars at goal. * Starting Dexamethasone 6mg IV daily x3 days today, tighten CF/CR and increase HS basal at this time to cover steroid effects. PLAN FOR INPATIENT GLYCEMIC CONTROL: * Hold oral diabetes medications * Basal insulin * Lantus 15 units x 1 then 20 units nightly * Bolus insulin * NovoLog per scale ACHS or Q6hrs while NPO * Goal Range: Low 110 mg/dL - High 140 mg/dL * Correction Factor: 12 mg/dL/unit * Nutritional / Prandial insulin per carb ratio of 1 unit per 4 grams CHO consumed
[2022-08-26] MEDS: ACETAMINOPHEN 500 MG TAB PO PRN (14:50)
--- NOTE | 2022-08-26 18:43 | Hospitalist Progress Note ---
Date of Service August 26, 2022 Assessment & Plan (1) Lumbar spinal stenosis: Plan: S/p lumbar decompression and fusion 08/23 Postoperative management as per orthopedic spine surgery-doing well Pain control, bowel regimen-give bisacodyl NH x1 now-last bowel movement 4 days ago Hemoglobin with drop from 10.4-now down further to 7.7 from acute blood loss anemia in setting of chronic anemia-asymptomatic, continue Venofer infusions but no transfusion Plan for home with home health possibly in 1 day (2) Anemia: Plan: acute blood loss anemia on chronic anemia, normocytic takes B12 at home, last transferrin sat low at 9% and now lower at 5% hgb 7.7 now from baseline 10.4 Fe studies low, unknown etiology B12/folate, TSH all normal -follow CBC in AM -give Venofer 300mg IV daily x 3 doses -No transfusion of blood today, consider if drops lower end is symptomatic but blood pressures are elevated -needs outpt GI f/u if not done recently-last colonoscopy in 2019 and has never had EGD-advised her to f/u with GI as outpt (3) Acid reflux disease: Plan: Continue home Protonix (4) Asthma: Plan: No acute issues Bronchodilators as needed (5) CKD (chronic kidney disease): Plan: Kidney function at baseline, CKD stage III-IV -Avoid nephrotoxins -renally dose meds when appropriate -follow BMP -continue lisinopril -Continue home amiloride/HCTZ-monitor BMP given hyponatremia (6) Depression with anxiety: Plan: stable continue duloxetine, buspirone (7) HTN (hypertension): Plan: BPs now rising continue lisinopril Continue home amiloride/HCTZ watch BMP as Na+ already slightly low today (8) Peripheral sensory neuropathy due to type 2 diabetes mellitus: Plan: continue gabapentin (9) Type 2 diabetes mellitus: Plan: holding home ozempic continue insulin here, basal and bolus Pharmacy managing (10) Vitamin D deficiency: Plan: continue home vit d Plan DVT proph-SCDs Dispo-continued stay, hospitalist service will follow along, likely dc to home tomorrow Admission and Anticipated Discharge Date Admission Date: August 23, 2022 Subjective Patient feeling better, ambulated the halls, less pain today. No lightheadedness, no chest pain or shortness of breath. No bowel movement in 4 to 5 days Physical Exam Constitutional: WD/WN, vitals as above + obese Neck: trachea midline, no thyromegaly Respiratory: normal respiratory effort, lungs clear to auscultation Cardiovascular: RRR, no murmur, no edema Chest (Breasts): Chest: normal inspection of chest Gastrointestinal (Abdomen): normal bowel sounds, soft, nontender, no hepatosplenomegaly Musculoskeletal: Extremities: extremities normal to inspection; no cyanosis and no clubbing Skin: no rashes, warm and dry Neurologic: moves all extremities and awake; no focal motor deficits Psychiatric: A+Ox3, euthymic affect Lymphatic: no lymphedema Results & Data Results & Data Vital Signs (Past 12 Hours) Vital Signs Temp Pulse Resp BP Pulse Ox O2 Del Method 08/26/22 14:53 36.7 C 89 18 162/71 H 94 Room Air 08/26/22 07:09 36.7 C 88 18 149/67 H 96 Room Air Laboratory Results CBC, BMP, magnesium level reviewed PG Care Time/CCT Total # of Minutes Spent Total Time Spent with Patient: Total time spent is greater than 50% in coordination of care (as documented) at patient's floor/unit and/or counseling patient: Coding Level of Care Code 85324 SUB INP/OBS CARE 2/35MIN Diagnoses Lumbar spinal stenosis M48.061 Anemia D64.9 Acid reflux disease K21.9 Asthma J45.909 CKD (chronic kidney disease) N18.31 Chronic kidney disease stage: stage 3 (moderate) Chronic kidney disease stage 3 subtype: stage 3a (GFR 45-59) Depression with anxiety F41.8 HTN (hypertension) I10 Hypertension type: essential hypertension Peripheral sensory neuropathy due to type 2 diabetes mellitus E11.42 Type 2 diabetes mellitus E11.9 Vitamin D deficiency E55.9 (5) CKD (chronic kidney disease) Chronic kidney disease stage: stage 3 (moderate) Chronic kidney disease stage 3 subtype: stage 3a (GFR 45-59) Qualified Code(s): N18.31 - Chronic kidney disease, stage 3a (7) HTN (hypertension) Hypertension type: essential hypertension Qualified Code(s): I10 - Essential (primary) hypertension
[2022-08-26] MEDS ORDERED: bisacodyL 10 MG SUPP PR ONE (18:50)
[2022-08-26] MEDS: ATORVASTATIN 10 MG TAB PO SCH (19:55)
[2022-08-26] MEDS: DOCUSATE SODIUM/SENNA 50/8.6MG TAB PO SCH (19:56)
[2022-08-26] MEDS: FEXOFENADINE HCL 180 MG TAB PO SCH (19:56)
[2022-08-26] MEDS: DULoxetine HCL 60 MG CAP PO SCH (19:56)
[2022-08-26] MEDS: CYANOCOBALAMIN (B-12) 500 MCG TABLET PO SCH (19:56)
[2022-08-26] MEDS: CHOLECALCIFEROL 1,000 UNITS 25 MCG TAB PO SCH (19:56)
[2022-08-26] MEDS: FLUTICASONE/VILANTEROL 200/25MCG 14 PUFFS/INHALER INH SCH (19:57)
[2022-08-26] MEDS: lisinopril 40 MG TAB PO SCH (19:57)
[2022-08-26] MEDS: MAGNESIUM OXIDE 400 MG TAB PO SCH (19:58)
[2022-08-26] MEDS: PANTOprazole 40 MG TAB PO SCH (19:58)
[2022-08-26] MEDS ORDERED: LANTUS PER UNIT CHARGE SC SCH (21:00)
[2022-08-27 06:12] LABS: Basophils # (auto) 0.01 K/uL (0-0.2); Basophils % (auto) 0.1 %; Eosinophils # (auto) 0.04 K/uL (0-0.50); Eosinophils % (auto) 0.5 %; Hematocrit (blood only) 22.8 % (37.0-47.0); Hemoglobin 7.3 g/dl (12.0-16.0); Immature Granulocytes # (auto) 0.07 K/uL (0.01-0.20); Immature Granulocytes % (auto) 0.8 %; Lymphocytes # (auto) 2.05 K/uL (1.2-3.4); Lymphocytes % (auto) 23.6 %; Mean Corpuscular Hemoglobin 28.9 pg (25.0-34.0); Mean Corpuscular Volume 90.1 fL (80.0-100.0); Mean Platelet Volume 10.1 fL (9.4-12.4); Monocytes # (auto) 0.98 K/uL (0.11-0.59); Monocytes % (auto) 11.3 %; Neutrophils # (auto) 5.55 K/uL (1.40-6.50); Neutrophils % (auto) 63.7 %; Platelet Count 216 K/uL (130-400); RDW Coefficient of Variation 13.5 % (11.5-14.5); RDW Standard Deviation 44.3 fL (36.4-46.3); Red Blood Count 2.53 M/uL (4.20-5.40)
[2022-08-27 06:20] LABS: BUN Creatinine Ratio 19.6 (10-20); Calcium 8.8 mg/dl (8.6-10.3); Creatinine Clr Calc Pharmacy 79.6 ml/min; Est GFR (African American) 73.6 ml/min; Est GFR (Non-African American) 63.5 ml/min; Potassium 4.5 mmol/L (3.5-5.1)
[2022-08-27] MEDS: POLYETHYLENE (MIRALAX) 17 GM PACK PO SCH (06:27)
[2022-08-27] MEDS: GABAPENTIN 800 MG TAB PO SCH ×2 (09:28→12:56)
[2022-08-27] MEDS: ASCORBIC ACID 500 MG TAB PO SCH ×2 (09:28→12:56)
[2022-08-27] MEDS: FLUTICASONE PROPIONATE NA SPR 16 GM BTL SCH (09:28)
[2022-08-27] MEDS: busPIRone 15 MG TAB PO SCH (09:28)
[2022-08-27] MEDS: FERROUS SULFATE 325 MG TAB PO SCH (09:29)
[2022-08-27] MEDS: MULTIVITAMIN TAB PO SCH (09:29)
[2022-08-27] MEDS: INSULIN ASPART PER UNIT CHARGE SC SCH ×2 (09:30→12:56)
[2022-08-27] MEDS: ASPIRIN 81 MG ECTAB PO SCH (09:30)
--- NOTE | 2022-08-27 09:49 | Discharge Summary ---
Date of Service August 27, 2022 Admission HPI Per Admitting Provider This is a 71-year-old female presents with chronic persistent back and leg pain after failing course of nonoperative care she is here for surgical intervention. Principal Diagnosis Lumbar spinal stenosis with neurogenic medication Discharge Data Allergies Allergy/AdvReac Type Severity Reaction Status Date / Time empagliflozin Allergy Intermediate CAUSED Verified 08/10/22 11:17 [From Jardiance] KIDNEY DISEASE SHORT TERM nickel Allergy Intermediate localized Verified 08/10/22 11:17 rash Penicillins Allergy Intermediate RASH Verified 08/10/22 11:17 Consultations 08/23/22 16:11 Consult Hospitalist Routine Procedures Performed Operation Date: 08/23/22 11:50 Actual Procedures p L3-S1 Decompression and Fusion, Spinal Cord Monitoring - Wan Baker DO Ordered Studies 08/23/22 [place] lumbar spine 2-3V Routine Hospital Course (1) Lumbar spinal stenosis: Patient went multilevel lumbar decompression fusion tolerated this well was taken to orthopedic for postoperative. Postop day 1 she was up and ambulating progress postop day #2 and throughout the remainder of the week steadily improving. ROSAMARIA drain decreasing appropriate. Excellent strength testing. Socially discharged home with home health. Discharge orders instructions on chart for further review. Total Time Total Time Spent Total Time Spent (In Minutes): 20 minutes Discharge Plan Discharge Items Patient Disposition: Home - Home Health Services Reason For Visit: POSTOP Discharge Diagnosis: Lumbar spinal stenosis with spondylolisthesis Activity: As commented below Non-emergency contact: Primary Care Provider Call non-emergency contact if: you have any medication questions Follow-up/Referrals: Andrew Adan DO [Primary Care Provider] - 09/06/22 10:00 am (APPT WITH [facility]) Diet: Regular Addtl Attending Provider Instructions: ACTIVITY RECOMMENDATIONS: SELF CARE INSTRUCTIONS AFTER THORACIC/LUMBAR FUSIONS 1. You may walk to your tolerance. It is good exercise for your legs and back. Expect some back and intermittent leg aches and pains. 2. You may perform "counter-top" level activities (make a sandwich, georgina with a project, etc.). 3. No bending or lifting of more than 10 pounds or back twisting of any nature (roll like a log when turning in bed). 4. You may ride in a car for 20-30 minutes at a time. No driving until after your first visit with your doctor. 5. Frequent changes of position and restricting sitting to 30 minutes at a time will help limit the amount of back spasms and stiffness you may experience. 6. You may discontinue the use of ambulatory aids (cane, crutches, etc.) once your strength and confidence allow. 7. You may joiner helper the shower and let water strike your incision when you arrive home at least once daily. Do not take a tub bath, sit in a hot tub or go into a swimming pool until after your first recheck in the office. SPECIAL CARE INSTRUCTIONS: VERY IMPORTANT TO READ AND REVIEW A. Your surgical incision has been closed with a cosmetic suture under the skin that will dissolve in about 6 weeks. In 14 days, you can use a pair of clean scissors and cut the suture that is left outside of the skin at the ends of your incision. 1. The small skin tapes can be removed 7 days after surgery if they have not fallen off by that point. 2. You may keep the wound open to air as much as possible to promote healing after post-op day number 5 unless told otherwise by your doctor. 3. If you think the wound looks like it is becoming infected (redness or worsening drainage) and/or you are experiencing fever, chill or worsening back pain and muscle spasms, contact the office so that we may evaluate you as soon as possible. B. Complications are uncommon, but please contact us if you have any signs or symptoms of: 1. wound infection (fever higher than 102.5 degrees F, redness, separation of wound, drainage, or increasing pain from the incision) 2. blood clots in legs (pain, swelling, redness and warmth in legs) 3. urinary tract infection (fever higher than 102.5 degrees F, burning upon urination or increased frequency of urination) 4. nerve problems (inability to walk on your toes or heels, numbness, loss of bowel or bladder control) 5. any other symptoms that concern you C. Please call the office at if you have any concerns or questions about your operation or recovery. D. No smoking! Smoking drastically decreases the chance of a solid fusion. E. Do not take any anti-inflammatory medications (Indocin, Advil, Motrin, Aspirin, Naprosyn, etc.) as these may inhibit the chance of a solid fusion. Tylenol is okay to take for pain. MANAGING PAIN AFTER SPINAL SURGERY 1. Narcotic medication is intended for short-term use and will be provided for surgical pain. Surgical pain usually lasts for a period of 4-6 weeks. Narcotic medication includes Percocet, Vicodin, Darvocet, Tylenol #3 or Lortab. 2. Longer-term pain is more appropriately treated with non-narcotic medication such as Tylenol ES. 3. Muscle spasm is not appropriately treated with narcotics. Muscle relaxers such as Soma, Flexeril or Skelaxin can be used along with Tylenol ES. 4. Remember that we all live with some "aches and pains". This is not unusual or uncommon after an injury or as we get older. a. Back pain is expected and may include muscle spasms for 4 to 6 weeks after surgery. The pain should gradually improve. If the pain worsens for no apparent reason, please contact the office. b. Intermittent leg pain may also be experienced and should not be concerned about unless it worsens for no apparent reason. If so, please contact the office. 5. We will provide appropriate medication within the normal guidelines of their prescribed use. We will also be very cautious and aware of potential abuse and extended duration of patients' medication needs. a. Pain medications are for your comfort and to assist with sleep and rest so that the tissue can heal. They are not provided in order to return to normal activity and should not be used through the day. To do so or worsening pain at night can result from ongoing tissue damage and development of tolerance to the prescribed medicine. 6. Please allow 2-3 days to process refills. Prescriptions will not be mailed but must be picked up at the office. FOLLOW UP VISIT: Keep your scheduled follow-up appointment. Any questions, please call the office at . Pending Studies at Discharge: No Stand-Alone Forms: My Apieron, Smoking Cessation Medications and DC Order Prescriptions: New tramadol 50 mg tablet 50 mg PO Q6H PRN (Reason: pain, moderate) Qty: 30 0RF oxycodone 5 mg tablet 5 mg PO Q6H PRN (Reason: pain) Qty: 30 0RF Continued (DME) lancets [OneTouch Delica Plus Lancet] 33 gauge misc See Dose Instructions .ROUTE .MEDSUPPLY Qty: 400 3RF Rx Instructions: Test 4 times daily fluticasone propion-salmeterol [Advair Diskus] 250-50 mcg/dose blister with device 1 inh INH BID Qty: 180 3RF metformin 500 mg tablet,ER kelsey.[email or web address] 24 hr 1,000 mg PO BID Qty: 360 1RF (DME) OneTouch Verio test strips Strip See Dose Instructions .ROUTE .MEDSUPPLY Qty: 400 3RF Dose Instruction: As directed Rx Instructions: Test 4 times daily baclofen 10 mg tablet 10 mg PO BID Qty: 180 2RF gabapentin 800 mg tablet 800 mg PO TID Qty: 270 0RF metoprolol succinate 50 mg tablet extended release 24 hr See Rx Instructions .ROUTE .COMPLEX Qty: 90 3RF Dose Instruction: TAKE 1 TABLET BY MOUTH AT BEDTIME Rx Instructions: TAKE 1 TABLET BY MOUTH AT BEDTIME amiloride-hydrochlorothiazide 5-50 mg tablet See Rx Instructions .ROUTE .COMPLEX Qty: 90 3RF Dose Instruction: TAKE 1 TABLET BY MOUTH EVERY MORNING Rx Instructions: TAKE 1 TABLET BY MOUTH EVERY MORNING (DME) compr.stocking,thigh,short,lrg Misc See Rx Instructions .ROUTE .MEDSUPPLY Qty: 2 2RF Rx Instructions: As directed Tresiba FlexTouch U-100 100 unit/mL (3 mL) insulin pen See Rx Instructions SUBCUT HS Rx Instructions: inject 20 units daily subcut at bedtime; multivitamin Tablet 1 tab PO QAM ascorbic acid (vitamin C) [Vitamin C] 1,000 mg Tablet 1 tab PO TID aspirin 81 mg Tablet,Delayed Release (Dr/Ec) 81 mg PO QAM ferrous sulfate [Iron (ferrous sulfate)] 325 mg (65 mg iron) Tablet 325 mg PO QAM fluticasone propionate [Flonase Allergy Relief] 50 mcg/actuation [place],Suspension 1 spray INTRANASAL QAM cholecalciferol (vitamin D3) [Vitamin D3] 1,000 unit Capsule 4,000 unit PO HS acetaminophen 500 mg tablet 1,000 mg PO TID PRN (Reason: pain) fexofenadine [Luda Allergy] 180 mg tablet 180 mg PO BID magnesium 250 mg Tablet 250 mg PO HS atorvastatin 10 mg tablet 10 mg PO HS Rx Instructions: TAKE 1 TABLET BY MOUTH AT BEDTIME omeprazole 20 mg capsule,delayed release(DR/EC) 20 mg PO QPM lisinopril 40 mg tablet 40 mg PO HS Rx Instructions: TAKE 1 TABLET BY MOUTH AT BEDTIME buspirone 15 mg tablet 15 mg PO BID Rx Instructions: TAKE 1 TABLET BY MOUTH TWICE DAILY duloxetine 60 mg capsule,delayed release(DR/EC) 60 mg PO HS Ozempic 0.25 mg or 0.5 mg (2 mg/3 mL) pen injector 0.5 mg subcut WK Rx Instructions: 0.5 mg subcut once a week; cyanocobalamin (vitamin B-12) [Vitamin B-12] 1,000 mcg Tablet 1,000 mcg PO QPM Discharge Orders: Discharge Order (Routine); Ordered 08/27/22 Ordered By: Wan Sapp/Other Patient Handouts: Managing Type 2 Diabetes Admission Data Admit Date/Time: 08/23/22 14:37 Attending Provider: Wan Baker Admit Provider: Wan Baker Primary Care Provider: Andrew Adan Other Providers: Oziel Fletcher ; Na Bains ; [facility]
[2022-08-27] MEDS: IRON SUCROSE 300 MG in SODIUM CHLORIDE 0.9% 250 ML IV SCH (10:32)
[2022-08-27] MEDS: oxyCODONE HCL IR 5 MG TAB (IMMEDIATE RELEASE) PO PRN (10:44)
== END 2022-08-27 14:31 | disposition home health service (06) | DRG 454 ==
LOC: ASU 10:22 → 3E 14:37